=== PATIENT | female | born 1935 | race Two or more races ===

== ENCOUNTER 2017-01-29 16:47 | Inpatient (IN) | payer MEDICARE ==
--- NOTE | 2017-01-29 17:44 | ER Document Report ---
ED Medical Screen (RME) - General Chief Complaint: Fever Stated Complaint: WEAKNESS Time Seen by Provider: 01/29/17 17:36 Mode of Arrival: Wheelchair Information source: Patient, Relative, Dr. Office Notes: 81-year-old female presents from primary care office with complaints of fever, possible UTI and pneumonia. Pt notes generalized weakness. I have greeted and performed a rapid initial assessment of this patient. A comprehensive ED assessment and evaluation of the patient, analysis of test results and completion of the medical decision making process will be conducted by additional ED providers. PHYSICAL EXAMINATION: GENERAL: Well-appearing, well-nourished and in no acute distress. HEAD: Atraumatic, normocephalic. EYES: Pupils equal round extraocular movements intact, conjunctiva are normal. ENT: Nares patent NECK: Normal range of motion LUNGS:crackles in the RLL Musculoskeletal: Normal range of motion NEUROLOGICAL: Normal speech, normal gait. PSYCH: Normal mood, normal affect. SKIN: Warm, Dry, normal turgor, no rashes or lesions noted. TRAVEL OUTSIDE OF THE [place] IN LAST 30 DAYS: No - Related Data Allergies/Adverse Reactions: ciprofloxacin [From Cipro] Allergy (Verified 01/29/17 17:03) clindamycin [Clindamycin] Allergy (Verified 01/29/17 17:02) hives/rash teriparatide [From Forteo] Allergy (Verified 01/29/17 17:02) Shortness of Breath tramadol [Tramadol] Adverse Reaction (Verified 01/29/17 17:02) Dizziness hair dye Allergy (Uncoded 01/29/17 17:02) rash Past Medical History - Past Medical History Cardiac Medical History: Reports: Hx Congestive Heart Failure, Hx Hypercholesterolemia, Hx Hypertension Endocrine Medical History: Reports: Hx Diabetes Mellitus Type 2, Hx Hypothyroidism Renal/ Medical History: Denies: Hx Peritoneal Dialysis GI Medical History: Reports: Hx Gastroesophageal Reflux Disease, Hx Irritable Bowel Musculoskeltal Medical History: Reports Hx Arthritis - Rheumatoid arthritis Psychiatric Medical History: Reports: Hx Anxiety, Hx Dementia, Hx Depression - anxiety Past Surgical History: Reports: Hx Abdominal Surgery - Gastrostomy tube for dysphagia in the past, but has been removed. - Immunizations Hx Diphtheria, Pertussis, Tetanus Vaccination: Yes Physical Exam - Vital signs Vitals: Temp Pulse Resp BP Pulse Ox 97.8 F 89 20 123/60 97 01/29/17 17:04 01/29/17 17:04 01/29/17 17:04 01/29/17 17:04 01/29/17 17:04 Course - Vital Signs Vital signs: Temp Pulse Resp BP Pulse Ox 97.8 F 89 20 123/60 97 01/29/17 17:04 01/29/17 17:04 01/29/17 17:04 01/29/17 17:04 01/29/17 17:04
[2017-01-29 18:35] LABS: VENOUS BLOOD HCO3 16.5 mmol/L (20-32); VENOUS BLOOD PCO2 34.3 mmHg (35-63); VENOUS BLOOD PH 7.3 (7.30-7.42)
[2017-01-29 18:44] LABS: HEMATOCRIT 36.3 % (36.0-47.0); HEMOGLOBIN 11.5 g/dL (12.0-15.5); HGB HCT DIFFERENCE -1.8; MEAN CORPUSCULAR HEMOGLOBIN 30.1 pg (27.0-33.4); MEAN CORPUSCULAR HGB CONC 31.8 g/dL (32.0-36.0); MEAN CORPUSCULAR VOLUME 95 fl (80-97); RED BLOOD COUNT 3.84 10^6/uL (3.72-5.28); RED CELL DISTRIBUTION WIDTH 17.5 % (11.5-14.0); WHITE BLOOD COUNT 22.1 10^3/uL (4.0-10.5)
[2017-01-29 18:50] LABS: PROTHROMBIN TIME 14.6 SEC (11.4-15.4)
[2017-01-29 19:01] LABS: ALANINE AMINOTRANSFERASE 18 U/L (9-52); ALBUMIN 3.2 g/dL (3.5-5.0); ALKALINE PHOSPHATASE 42 U/L (38-126); ANION GAP 12 (5-19); ASPARTATE AMINO TRANSFERASE 15 U/L (14-36); BILIRUBIN,DIRECT 0.5 mg/dL (0.0-0.4); BILIRUBIN,TOTAL 0.6 mg/dL (0.2-1.3); BLOOD UREA NITROGEN 23 mg/dL (7-20); CALCIUM 9.5 mg/dL (8.4-10.2); CARBON DIOXIDE 18 mmol/L (22-30); CHLORIDE 110 mmol/L (98-107); CREATININE RESULT 0.79 mg/dL (0.52-1.25); GLUCOSE 109 mg/dL (75-110); SODIUM 139.5 mmol/L (137-145); TOTAL PROTEIN 6.3 g/dL (6.3-8.2)
[2017-01-29 19:02] LABS: BAND NEUTROPHILS % (MANUAL) 9 % (3-5); BASOPHILS % (MANUAL) 0 % (0-2); EOSINOPHILS % (MANUAL) 0 % (0-6); LYMPHOCYTES % (MANUAL) 11 % (13-45); TOTAL CELLS COUNTED 100
[2017-01-29 19:06] LABS: ANISOCYTOSIS 1+; BURR CELLS SLIGHT; OVALOCYTES SLIGHT; PLATELET CLUMPS PRESENT; SCHISTOCYTES SLIGHT; TOXIC GRANULATION 1+
--- NOTE | 2017-01-29 19:08 | RADIOLOGY REPORT (SQ) ---
EXAM DESCRIPTION: CHEST PA/LAT COMPLETED DATE/TIME: 01/29/2017 6:51 pm REASON FOR STUDY: fever COMPARISON: 12/03/2015. EXAM PARAMETERS: NUMBER OF VIEWS: two views TECHNIQUE: Digital Frontal and Lateral radiographic views of the chest acquired. RADIATION DOSE: NA LIMITATIONS: none FINDINGS: LUNGS AND PLEURA: Indistinct airspace disease in the right lung, particularly the right ba se. Left lung clear. No pleural effusion. No pneumothorax. MEDIASTINUM AND HILAR STRUCTURES: No masses or contour abnormalities. HEART AND VASCULAR STRUCTURES: Heart normal size. No evidence for failure. BONES: No acute findings. HARDWARE: None in the chest. OTHER: No other significant finding. IMPRESSION: INDISTINCT INFILTRATE IN THE RIGHT LUNG SUSPICIOUS FOR PNEUMONIA. TECHNICAL DOCUMENTATION: JOB ID: [id number] [employer]- All Rights Reserved
[2017-01-29] MEDS ORDERED: CEFTRIAXONE 1 GM/D5W RTU 50 ML IV ONE (19:10)
[2017-01-29] MEDS ORDERED: AZITHROMYCIN 250 MG TABLET PO ONE (19:11)
[2017-01-29] MEDS ORDERED: NORMAL SALINE 1000 ML 1,000 ML IV ONE ×2 (19:11→20:25)
[2017-01-29 19:51] LABS: APPEARANCE,URINE CLOUDY; BILIRUBIN,URINE NEGATIVE (NEGATIVE); GLUCOSE, URINE NEGATIVE (NEGATIVE); KETONES,URINE NEGATIVE (NEGATIVE); URINE SPECIFIC GRAVITY 1.023
[2017-01-29 19:52] LABS: BACTERIA,URINE 4+ /HPF; LEUKOCYTE ESTERASE,URINE LARGE (NEGATIVE); NITRITE,URINE NEGATIVE (NEGATIVE); PROTEIN,URINE 100 mg/dL (NEGATIVE); UROBILINOGEN,URINE NEGATIVE mg/dL (<2.0); WBC,URINE >100 /HPF
--- NOTE | 2017-01-29 20:25 | ER Document Report ---
ED General - General Chief Complaint: Fever Stated Complaint: WEAKNESS Time Seen by Provider: 01/29/17 17:36 Mode of Arrival: Wheelchair Cannot obtain history due to: Dementia Notes: Patient is an 81-year-old female past medical history of dementia, hypertension , who presents with fever 203.5F earlier this morning as recorded by EMS. Patient herself is extremely demented and unable to provide any meaningful history. The daughter at the bedside states that she has had a productive cough and fever for the past 12 hours. Patient was seen by her primary care physician referred to the emergency department for further assessment. The daughter did provide Tylenol today with improvement of the patient's fever. Patient has apparently had similar symptoms in the past with prior occult infections. History is otherwise limited secondary to patient's dementia. TRAVEL OUTSIDE OF THE [place] IN LAST 30 DAYS: No - Related Data Allergies/Adverse Reactions: ciprofloxacin [From Cipro] Allergy (Verified 01/29/17 17:03) clindamycin [Clindamycin] Allergy (Verified 01/29/17 17:02) hives/rash teriparatide [From Forteo] Allergy (Verified 01/29/17 17:02) Shortness of Breath tramadol [Tramadol] Adverse Reaction (Verified 01/29/17 17:02) Dizziness hair dye Allergy (Uncoded 01/29/17 17:02) rash Home Medications: Current Home Medications Atorvastatin Calcium [Lipitor 10 mg Tablet] 10 mg PO QHS 01/29/17 [History] Azathioprine 50 mg PO BID 01/29/17 [History] Ca Carbonate/Vitamin D3/Vit K [Calcium + D Soft Chewable Tab] 1 each PO BID 04/09 [History] Cyanocobalamin (Vitamin B-12) [Vitamin B-12 1000 Mcg Tablet] 2,000 mcg PO DAILY 01/29/17 [History] Dexlansoprazole [Dexilant 30 mg Capsule] 30 mg PO DAILY 01/29/17 [History] Diclofenac Sodium [Voltaren] 100 gm TP DAILY PRN 01/29/17 [History] Donepezil HCl [Aricept 5 mg Tablet] 5 mg PO QHS 01/29/17 [History] Ergocalciferol (Vitamin D2) [Vitamin D2] 50,000 unit PO ASDIR 01/29/17 [History] Hydroxychloroquine Sulfate [Plaquenil 200 mg Tablet] 200 mg PO DAILY 01/29/17 [ History] Olopatadine HCl [Patanol 0.1% Oph Soln 5 Ml Bottle] 1 drop BTH_EYE DAILY PRN 04/09 [History] Propafenone HCl 300 mg PO Q8H 01/29/17 [History] Sertraline HCl [Zoloft 50 mg Tablet] 50 mg PO DAILY 01/29/17 [History] Past Medical History - General Information source: Patient, Relative, DrLoly Office - Social History Smoking Status: Never Smoker Chew tobacco use (# tins/day): No Frequency of alcohol use: None Drug Abuse: None Lives with: Family Family History: Reviewed & Not Pertinent Patient has suicidal ideation: No Patient has homicidal ideation: No - Past Medical History Cardiac Medical History: Reports: Hx Congestive Heart Failure, Hx Hypercholesterolemia, Hx Hypertension Endocrine Medical History: Reports: Hx Diabetes Mellitus Type 2, Hx Hypothyroidism Renal/ Medical History: Denies: Hx Peritoneal Dialysis GI Medical History: Reports: Hx Gastroesophageal Reflux Disease, Hx Irritable Bowel Musculoskeltal Medical History: Reports Hx Arthritis - Rheumatoid arthritis Psychiatric Medical History: Reports: Hx Anxiety, Hx Dementia, Hx Depression - anxiety Past Surgical History: Reports: Hx Abdominal Surgery - Gastrostomy tube for dysphagia in the past, but has been removed. - Immunizations Hx Diphtheria, Pertussis, Tetanus Vaccination: Yes Hx Pneumococcal Vaccination: 06/24/13 Review of Systems - Review of Systems -: Yes ROS unobtainable due to patient's medical condition Physical Exam - Vital signs Vitals: Temp Pulse Resp BP Pulse Ox 97.8 F 89 20 123/60 97 01/29/17 17:04 01/29/17 17:04 01/29/17 17:04 01/29/17 17:04 01/29/17 17:04 Interpretation: Normal Notes: PHYSICAL EXAMINATION: GENERAL: Appears in no acute distress. Elderly in appearance. HEAD: Atraumatic, normocephalic. EYES: Pupils equal round and reactive to light, extraocular movements intact, sclera anicteric, conjunctiva are normal. ENT: nares patent, oropharynx clear without exudates. Moderately dry mucous membranes. NECK: Normal range of motion, supple without lymphadenopathy LUNGS: Slightly diminished breath sounds at the right base. No respiratory distress. HEART: Regular rate and rhythm without murmurs ABDOMEN: Soft, nontender, normoactive bowel sounds. No guarding, no rebound. No masses appreciated. EXTREMITIES: Normal range of motion, no pitting or edema. No cyanosis. NEUROLOGICAL: No focal neurological deficits. Moves all extremities spontaneously and on command. PSYCH: Advanced dementia. Oriented to person only SKIN: Warm, Dry, normal turgor, no rashes or lesions noted. Course - Re-evaluation Re-evalutation: 01/29/17 20:21 Patient presents with a fever to 103.5F by EMS record earlier today, increased fatigue, cough and change in her overall appearance of the family. Patient is moderately ill in appearance the time of assessment vitals are otherwise within normal limits. She is in no respiratory distress. Laboratories do demonstrate a leukocytosis with bandemia. Urinalysis consistent with an acute urinary tract infection. Her chest x-ray also demonstrates a right lower lobe pneumonia. She has been started on IV fluids, IV ceftriaxone and oral azithromycin. Given her multifocal infection, prominent leukocytosis and age she will require admission to the hospital. Her lactate is normal however and she does not meet severe sepsis criteria. - Vital Signs Vital signs: Temp Pulse Resp BP Pulse Ox 97.8 F 89 20 106/44 L 99 01/29/17 17:04 01/29/17 17:04 01/29/17 22:01 01/29/17 22:01 01/29/17 22:01 - Laboratory Result Diagrams: 01/29/17 18:15 01/29/17 18:15 Laboratory results interpreted by me: 01/29/17 01/29/17 01/29/17 18:15 18:15 18:15 WBC 22.1 H Hgb 11.5 L MCHC 31.8 L RDW 17.5 H Band Neutrophils % 9 H Lymphocytes % (Manual) 11 L Monocytes % (Manual) 2 L Abs Neuts (Manual) 19.2 H VBG pCO2 34.3 L VBG HCO3 16.5 L Chloride 110 H Carbon Dioxide 18 L BUN 23 H Direct Bilirubin 0.5 H Creatine Kinase Albumin 3.2 L Urine Protein Urine Blood Ur Leukocyte Esterase 01/29/17 01/29/17 18:15 19:25 WBC Hgb MCHC RDW Band Neutrophils % Lymphocytes % (Manual) Monocytes % (Manual) Abs Neuts (Manual) VBG pCO2 VBG HCO3 Chloride Carbon Dioxide BUN Direct Bilirubin Creatine Kinase 25 L Albumin Urine Protein 100 H Urine Blood SMALL H Ur Leukocyte Esterase LARGE H - Diagnostic Test Radiology reviewed: Image reviewed, Reports reviewed Radiology results interpreted by me: 01/29/17 20:22 Chest x-ray: Right lower lobe pneumonia Discharge - Discharge Clinical Impression: Sepsis Qualifiers: Sepsis type: sepsis due to unspecified organism Qualified Code(s): A41.9 - Sepsis, unspecified organism Right lower lobe pneumonia Qualifiers: Pneumonia type: due to unspecified organism Qualified Code(s): J18.1 - Lobar pneumonia, unspecified organism Urinary tract infection Qualifiers: Urinary tract infection type: acute pyelonephritis Qualified Code(s): N10 - Acute pyelonephritis Disposition: ADMITTED INPATIENT Admitting Provider: [facility] Admitted: Telemetry
[2017-01-29] MEDS ORDERED: ONDANSETRON HCL INJ/PF 4 MG/2 ML SDV IV PRN (20:53)
[2017-01-29] MEDS ORDERED: MAG HYDROX/AL HYDROX/SIMETH SUSP 30 ML UDCUP PO PRN (20:53)
[2017-01-29] MEDS ORDERED: (PENDING PHARMACY ID) (Diclofenac Sodium [Voltaren] 100 GM) TP PRN (20:55)
[2017-01-29] MEDS ORDERED: OLOPATADINE HCL 0.1% OPH SOLN 5 ML OU PRN (20:55)
[2017-01-29] MEDS ORDERED: PROPAFENONE HCL 300 MG PO SCH (21:00)
[2017-01-29 21:32] LABS: CREATINE KINASE MB 1.14 ng/mL (<4.55); TROPONIN I 0.029 ng/mL
[2017-01-29] MEDS ORDERED: DONEPEZIL HCL 5 MG TABLET PO SCH (22:00)
[2017-01-29] MEDS ORDERED: DEXTROSE 40% GEL 15 GM TUBE PO PRN ×2 (23:10)
[2017-01-29] MEDS ORDERED: GLUCAGON,HUMAN RECOMB 1 MG INJ IM PRN (23:10)
[2017-01-29] MEDS ORDERED: DEXTROSE 50%-WATER 25 GM/50 ML DISP.SYRIN IV PRN ×2 (23:10)
[2017-01-29] MEDS ORDERED: INSULIN LISPRO 100 UNIT/ML 3 ML VIAL SUBCUT PRN (23:10)
[2017-01-29] MEDS ORDERED: BIMATOPROST 0.01% OPH SOLN 2.5 ML/BOTTLE ONE (23:40)
[2017-01-29] MEDS ORDERED: PROPAFENONE HCL 150 MG TABLET ONE (23:41)
[2017-01-29] MEDS: ALPRAZOLAM 0.5 MG TABLET PO PRN (23:56)
[2017-01-29] MEDS: PROPAFENONE HCL 150 MG TABLET PO SCH (23:56)
[2017-01-29] MEDS: BIMATOPROST 0.01% OPH SOLN 2.5 ML/BOTTLE OU SCH (23:57)
[2017-01-29] MEDS: ATORVASTATIN CALCIUM 10 MG TABLET PO SCH (23:57)
[2017-01-29] MEDS: HEPARIN SOD (PORCINE) 5,000 UNIT/ML 1 ML SYRINGE SUBCUT SCH (23:58)
--- NOTE | 2017-01-30 00:42 | PDOC H&P ---
History of Present Illness Admission Date/PCP: 01/29/17 20:53 NEYMAR THURSTON MD Patient complains of: Fever and weakness History of Present Illness: JOHANNA NOVAK is a 81 year old female past medical history of CVA, dementia, congestive heart failure, hypertension, rheumatoid arthritis and hypothyroidism. She has been her usual state of health until 12 hours prior to presentation with complaints of weakness and fever of 103.5. She was seen by primary care found to have hypotension tachycardia and fever and was referred to the emergency room for evaluation finding a chest x-ray suggestive of right- sided pneumonia and a urinalysis with pyuria. She started on empiric antibiotics and referred to the hospitalist for admission. Patient currently states she feels better denies chest pain nausea vomiting or diarrhea. She denies infectious contacts sore throat, rhinorrhea or cough. No dysuria or frequent urination or flank pain. Past Medical History Cardiac Medical History: Reports: Congestive Heart Failure, Hyperlipidema, Hypertension Endocrine Medical History: Reports: Diabetes Mellitus Type 2, Hypothyroidism GI Medical History: Reports: Gastroesophageal Reflux Disease Musculoskeltal Medical History: Reports: Arthritis - Rheumatoid arthritis Psychiatric Medical History: Reports: Dementia, Depression - anxiety Social History Information Source: Patient, Relative, Emergency Med Personnel, [facility] Records Lives with: Family Smoking Status: Never Smoker Frequency of Alcohol Use: None Hx Recreational Drug Use: No Hx Prescription Drug Abuse: No - Advance Directive Resuscitation Status: Full Code Family History Family History: DM, Hypertension Parental Family History Reviewed: Yes Children Family History Reviewed: Yes Sibling(s) Family History Reviewed.: Yes Medication/Allergy Home Medications: Alprazolam [Xanax 0.5 mg Tablet] 0.5 mg PO TID PRN 09/03/14 Fenofibrate 160 mg PO DAILY 09/03/14 Ferrous Sulfate [Feosol] 325 mg PO DAILY 09/03/14 Folic Acid 1 mg PO DAILY 09/03/14 Levothyroxine Sodium [Synthroid] 200 mcg PO DAILY 09/03/14 Metformin HCl [Glucophage] 500 mg PO DAILY 09/03/14 Bimatoprost [Lumigan 0.01% Oph Soln 2.5 ml/Bottle] 1 drop OP QHS 09/05/14 Ibuprofen 800 mg PO Q8H PRN 09/05/14 Levothyroxine Sodium [Synthroid 0.025 mg Tablet] 50 mcg PO DAILY 09/05/14 Prednisone [Deltasone 10 mg Tablet] 10 mg PO ASDIR PRN #15 tablet 09/24/14 Atorvastatin Calcium [Lipitor 10 mg Tablet] 10 mg PO QHS 01/29/17 Azathioprine 50 mg PO BID 01/29/17 Ca Carbonate/Vitamin D3/Vit K [Calcium + D Soft Chewable Tab] 1 each PO BID 04/09 Cyanocobalamin (Vitamin B-12) [Vitamin B-12 1000 Mcg Tablet] 2,000 mcg PO DAILY 01/29/17 Dexlansoprazole [Dexilant 30 mg Capsule] 30 mg PO DAILY 01/29/17 Diclofenac Sodium [Voltaren] 100 gm TP DAILY PRN 01/29/17 Donepezil HCl [Aricept 5 mg Tablet] 5 mg PO QHS 01/29/17 Ergocalciferol (Vitamin D2) [Vitamin D2] 50,000 unit PO ASDIR 01/29/17 Hydroxychloroquine Sulfate [Plaquenil 200 mg Tablet] 200 mg PO DAILY 01/29/17 Olopatadine HCl [Patanol 0.1% Oph Soln 5 Ml Bottle] 1 drop BTH_EYE DAILY PRN 04/09 Propafenone HCl 300 mg PO Q8H 01/29/17 Sertraline HCl [Zoloft 50 mg Tablet] 50 mg PO DAILY 01/29/17 Allergies/Adverse Reactions: ciprofloxacin [From Cipro] Allergy (Verified 01/29/17 17:03) clindamycin [Clindamycin] Allergy (Verified 01/29/17 17:02) hives/rash teriparatide [From Forteo] Allergy (Verified 01/29/17 17:02) Shortness of Breath tramadol [Tramadol] Adverse Reaction (Verified 01/29/17 17:02) Dizziness hair dye Allergy (Uncoded 01/29/17 17:02) rash Review of Systems Constitutional: ABSENT: chills, fever(s), headache(s), weight gain, weight loss Eyes: ABSENT: visual disturbances Ears: ABSENT: hearing changes Cardiovascular: ABSENT: chest pain, dyspnea on exertion, edema, orthropnea, palpitations Respiratory: ABSENT: cough, hemoptysis Gastrointestinal: ABSENT: abdominal pain, constipation, diarrhea, hematemesis, hematochezia, nausea, vomiting Genitourinary: ABSENT: dysuria, hematuria Musculoskeletal: ABSENT: joint swelling Integumentary: ABSENT: rash, wounds Neurological: ABSENT: abnormal gait, abnormal speech, confusion, dizziness, focal weakness, syncope Psychiatric: ABSENT: anxiety, depression, homidical ideation, suicidal ideation Endocrine: ABSENT: cold intolerance, heat intolerance, polydipsia, polyuria Hematologic/Lymphatic: ABSENT: easy bleeding, easy bruising Physical Exam Vital Signs: Temp Pulse Resp BP Pulse Ox 97.8 F 89 20 106/44 L 99 01/29/17 17:04 01/29/17 17:04 01/29/17 22:01 01/29/17 22:01 01/29/17 22:01 General appearance: PRESENT: no acute distress, well-developed, well-nourished Head exam: PRESENT: atraumatic, normocephalic Eye exam: PRESENT: conjunctiva pink, EOMI, PERRLA. ABSENT: scleral icterus Ear exam: PRESENT: normal external ear exam Mouth exam: PRESENT: moist, tongue midline Neck exam: ABSENT: carotid bruit, JVD, lymphadenopathy, thyromegaly Respiratory exam: PRESENT: crackles, decreased breath sounds - Right-sided crackles and decreased breath sounds. ABSENT: accessory muscle use, rales, rhonchi, stridor, tachypnea, unlabored, wheezes Cardiovascular exam: PRESENT: RRR. ABSENT: diastolic murmur, rubs, systolic murmur Pulses: PRESENT: normal dorsalis pedis pul Vascular exam: PRESENT: normal capillary refill GI/Abdominal exam: PRESENT: normal bowel sounds, soft. ABSENT: distended, guarding, mass, organolmegaly, rebound, tenderness Rectal exam: PRESENT: deferred Extremities exam: PRESENT: full ROM. ABSENT: calf tenderness, clubbing, pedal edema Neurological exam: PRESENT: alert, awake, oriented to person, oriented to place , oriented to time, oriented to situation, CN II-XII grossly intact, other - Facial asymmetry consistent with remote history. ABSENT: motor sensory deficit Psychiatric exam: PRESENT: appropriate affect, normal mood. ABSENT: homicidal ideation, suicidal ideation Skin exam: PRESENT: dry, intact, warm. ABSENT: cyanosis, rash Results Impressions: Chest X-Ray 01/29/17 17:36 IMPRESSION: INDISTINCT INFILTRATE IN THE RIGHT LUNG SUSPICIOUS FOR PNEUMONIA. Assessment & Plan - Diagnosis (1) Right lower lobe pneumonia Qualifiers: Pneumonia type: due to unspecified organism Qualified Code(s): J18.1 - Lobar pneumonia, unspecified organism Is this a current diagnosis for this admission?: YesPlan: History not entirely consistent with pneumonia and history of rheumatic lung disease, empiric treatment initiated consider follow-up imaging of associated pleural calcification with effusion. Incentive spirometry albuterol and Atrovent ordered CBC blood and sputum culture pending (2) Sepsis Qualifiers: Sepsis type: sepsis due to unspecified organism Qualified Code(s): A41.9 - Sepsis, unspecified organism Is this a current diagnosis for this admission?: YesPlan: Secondary to urinary tract infection, IV fluid challenge consider Solu-Cortef given history of rheumatic lung and prednisone use (3) Urinary tract infection Qualifiers: Urinary tract infection type: acute pyelonephritis Qualified Code(s): N10 - Acute pyelonephritis Is this a current diagnosis for this admission?: YesPlan: Empiric antibiotics initiated urine culture and CBC pending
[2017-01-30 03:41] LABS: ABSOLUTE BASOPHILS # (AUTO) 0.1 10^3/uL (0.0-0.2); ABSOLUTE EOSINOPHILS # (AUTO) 0.1 10^3/uL (0.0-0.6); ABSOLUTE LYMPHOCYTES (AUTO) 2.8 10^3/uL (0.5-4.7); ABSOLUTE MONOCYTES (AUTO) 0.6 10^3/uL (0.1-1.4); ABSOLUTE NEUT (AUTO) 12.9 10^3/uL (1.7-8.2); BASOPHILS % (AUTO) 0.7 % (0-2); EOSINOPHILS % (AUTO) 0.5 % (0-6); HEMATOCRIT 30.3 % (36.0-47.0); HEMOGLOBIN 9.6 g/dL (12.0-15.5); HGB HCT DIFFERENCE -1.5; LYMPHOCYTES % (AUTO) 16.7 % (13-45); MEAN CORPUSCULAR HGB CONC 31.5 g/dL (32.0-36.0); MEAN CORPUSCULAR VOLUME 95 fl (80-97); MONOCYTES % (AUTO) 3.7 % (3-13); RED BLOOD COUNT 3.18 10^6/uL (3.72-5.28); RED CELL DISTRIBUTION WIDTH 17.3 % (11.5-14.0); SEGMENTED NEUTROPHILS % (AUTO) 78.4 % (42-78); WHITE BLOOD COUNT 16.5 10^3/uL (4.0-10.5)
[2017-01-30 03:52] LABS: ANION GAP 8 (5-19); BLOOD UREA NITROGEN 19 mg/dL (7-20); CALCIUM 8.5 mg/dL (8.4-10.2); CARBON DIOXIDE 18 mmol/L (22-30); CHLORIDE 115 mmol/L (98-107); CREATININE RESULT 0.75 mg/dL (0.52-1.25); GLUCOSE 68 mg/dL (75-110); POTASSIUM 3.5 mmol/L (3.6-5.0); SODIUM 141.2 mmol/L (137-145)
[2017-01-30 04:02] LABS: CREATINE KINASE MB 1.55 ng/mL (<4.55)
[2017-01-30 04:04] LABS: TROPONIN I 0.055 ng/mL
[2017-01-30] MEDS: HEPARIN SOD (PORCINE) 5,000 UNIT/ML 1 ML SYRINGE SUBCUT SCH ×3 (06:59→21:23)
[2017-01-30] MEDS: PROPAFENONE HCL 150 MG TABLET PO SCH ×3 (07:08→21:23)
[2017-01-30] MEDS: IPRATROPIUM/ALBUTEROL 0.5-2.5 MG/3 ML AMPUL NEB SCH ×3 (07:57→20:39)
[2017-01-30] MEDS: NORMAL SALINE 1000 ML 1,000 ML IV SCH ×2 (07:59→14:56)
[2017-01-30] MEDS: CALCIUM CARBONATE 250 MG/VITAMIN D3 125 UNIT TABLET PO SCH ×2 (09:35→17:10)
[2017-01-30] MEDS: LANSOPRAZOLE 15 MG TAB.RAP.DR PO SCH (09:36)
[2017-01-30] MEDS: AZITHROMYCIN 500 MG in DEXTROSE 5%-WATER 250 ML IV SCH (09:38)
[2017-01-30] MEDS: DOCUSATE SODIUM 100 MG CAPSULE PO SCH ×2 (09:38→17:08)
[2017-01-30] MEDS ORDERED: (PENDING PHARMACY ID) (Dexlansoprazole [Dexilant 30 Mg Capsule] 30 MG) PO SCH (10:00)
[2017-01-30] MEDS ORDERED: CA CARBONATE PO SCH (10:00)
[2017-01-30] MEDS ORDERED: LEVOTHYROXINE SODIUM 0.1 MG TABLET PO SCH (10:00)
[2017-01-30] MEDS ORDERED: [UNRECOGNIZED DRUG - OTHER] PO SCH (10:00)
[2017-01-30] MEDS ORDERED: VITAMIN D3 PO SCH (10:00)
[2017-01-30] MEDS ORDERED: EAC PO SCH (10:00)
[2017-01-30] MEDS ORDERED: VIT K PO SCH (10:00)
[2017-01-30 10:08] LABS: CREATINE KINASE MB 1.51 ng/mL (<4.55); TROPONIN I 0.039 ng/mL
--- NOTE | 2017-01-30 10:59 | EKG REPORT ---
SEVERITY:- ABNORMAL ECG - ATRIAL FIBRILLATION LEFT BUNDLE BRANCH BLOCK : Confirmed by: Virginia Pa MD 30-Jan-2017 10:57:51
[2017-01-30] MEDS: ACETAMINOPHEN 325 MG TABLET PO PRN (12:40)
[2017-01-30] MEDS ORDERED: LOPERAMIDE HCL 2 MG CAPSULE PO PRN (13:04)
[2017-01-30] MEDS ORDERED: LOPERAMIDE HCL 2 MG CAPSULE PO ONE ×2 (13:30→14:00)
--- NOTE | 2017-01-30 13:34 | PDOC PROGRESS REPORT ---
Subjective Progress Note for:: 01/30/17 Subjective:: Complains of a nonproductive cough and lower back pain. Physical Exam Vital Signs: Temp Pulse Resp BP Pulse Ox 98.2 F 87 16 111/39 L 99 01/30/17 11:22 01/30/17 11:22 01/30/17 11:22 01/30/17 11:22 01/30/17 11:22 Intake & Output 01/29/17 01/30/17 01/31/17 06:59 06:59 06:59 Intake Total 220 Output Total 200 Balance 20 Weight 53 kg General appearance: PRESENT: mild distress Eye exam: PRESENT: conjunctiva pink. ABSENT: scleral icterus Mouth exam: PRESENT: moist, tongue midline Neck exam: ABSENT: JVD Respiratory exam: PRESENT: clear to auscultation ana maria. ABSENT: rales, rhonchi, wheezes Cardiovascular exam: PRESENT: RRR. ABSENT: diastolic murmur, rubs, systolic murmur GI/Abdominal exam: PRESENT: normal bowel sounds, soft. ABSENT: distended, guarding, mass, organolmegaly, rebound, tenderness Extremities exam: ABSENT: calf tenderness, clubbing, pedal edema Neurological exam: PRESENT: alert, awake, oriented to person, oriented to place , oriented to time, oriented to situation, CN II-XII grossly intact. ABSENT: motor sensory deficit Psychiatric exam: PRESENT: appropriate affect Skin exam: PRESENT: dry, intact, warm. ABSENT: cyanosis, rash Results Laboratory Results: 01/30/17 03:07 01/30/17 03:07 01/30/17 01/30/17 03:07 03:07 WBC 16.5 H RBC 3.18 L Hgb 9.6 L Hct 30.3 L MCV 95 MCH 30.0 MCHC 31.5 L RDW 17.3 H Plt Count 317 Seg Neutrophils % 78.4 H Lymphocytes % 16.7 Monocytes % 3.7 Eosinophils % 0.5 Basophils % 0.7 Absolute Neutrophils 12.9 H Absolute Lymphocytes 2.8 Absolute Monocytes 0.6 Absolute Eosinophils 0.1 Absolute Basophils 0.1 Sodium 141.2 Potassium 3.5 L Chloride 115 H Carbon Dioxide 18 L Anion Gap 8 BUN 19 Creatinine 0.75 Est GFR ( Amer) > 60 Est GFR (Non-Af Amer) > 60 Glucose 68 L Calcium 8.5 01/30/17 01/30/17 01/30/17 03:07 03:07 09:00 Creatine Kinase 47 41 CK-MB (CK-2) 1.55 Troponin I 0.055 01/30/17 09:00 Creatine Kinase CK-MB (CK-2) 1.51 Troponin I 0.039 Impressions: Chest X-Ray 01/29/17 17:36 IMPRESSION: INDISTINCT INFILTRATE IN THE RIGHT LUNG SUSPICIOUS FOR PNEUMONIA. Assessment & Plan - Diagnosis (1) Sepsis Qualifiers: Sepsis type: sepsis due to unspecified organism Qualified Code(s): A41.9 - Sepsis, unspecified organism Is this a current diagnosis for this admission?: YesPlan: The urinary tract infection as well as a probable pneumonia for the cause for sepsis. Patient's blood pressure has improved with IV fluids (2) Urinary tract infection Qualifiers: Urinary tract infection type: acute pyelonephritis Qualified Code(s): N10 - Acute pyelonephritis Is this a current diagnosis for this admission?: YesPlan: Has been started on Rocephin for her urinary tract infection. We will continue with IV fluids. (3) Right lower lobe pneumonia Qualifiers: Pneumonia type: due to unspecified organism Qualified Code(s): J18.1 - Lobar pneumonia, unspecified organism Is this a current diagnosis for this admission?: YesPlan: Is on Rocephin and Zithromax. (5) Congestive heart failure Is this a current diagnosis for this admission?: YesPlan: Has a history of congestive heart failure however she is volume depleted currently. She is receiving IV fluids and will watch closely to make certain that she does not become volume overloaded (6) Rheumatoid arthritis Is this a current diagnosis for this admission?: Yes (7) Hypothyroidism Is this a current diagnosis for this admission?: YesPlan: Continue with Synthroid. (8) Hypertension Is this a current diagnosis for this admission?: YesPlan: Hold her antihypertensives in light of her sepsis and hypotension - Time Time Spent with patient: 25-34 minutes - Inpatient Certification Medical Necessity: Need For IV Fluids, Need for IV Antibiotics
[2017-01-30] MEDS: IBUPROFEN 800 MG TABLET PO SCH (17:09)
[2017-01-30] MEDS: PREDNISONE 5 MG TABLET PO SCH (17:09)
[2017-01-30] MEDS: CEFTRIAXONE 1 GM/D5W RTU 1 GM/50 ML RTUPB IV SCH (17:10)
[2017-01-30] MEDS: ALPRAZOLAM 0.5 MG TABLET PO PRN (20:04)
[2017-01-30] MEDS: IPRATROPIUM/ALBUTEROL 0.5-2.5 MG/3 ML AMPUL NEB PRN (20:31)
[2017-01-30] MEDS: HYDROXYCHLOROQUINE SULFATE 200 MG TABLET PO SCH (21:22)
[2017-01-30] MEDS: FENOFIBRATE NANOCRYSTALLIZED 145 MG TABLET PO SCH (21:23)
[2017-01-30] MEDS: ATORVASTATIN CALCIUM 10 MG TABLET PO SCH (21:23)
[2017-01-30] MEDS: BIMATOPROST 0.01% OPH SOLN 2.5 ML/BOTTLE OU SCH (21:23)
[2017-01-30] MEDS ORDERED: (PENDING PHARMACY ID) (Fenofibrate [Fenofibrate] 160 MG) PO SCH (22:00)
[2017-01-31 05:14] LABS: ABSOLUTE EOSINOPHILS # (AUTO) 0.1 10^3/uL (0.0-0.6); ABSOLUTE MONOCYTES (AUTO) 0.5 10^3/uL (0.1-1.4); ABSOLUTE NEUT (AUTO) 8.6 10^3/uL (1.7-8.2); BASOPHILS % (AUTO) 0.4 % (0-2); EOSINOPHILS % (AUTO) 0.7 % (0-6); HEMATOCRIT 26.8 % (36.0-47.0); HEMOGLOBIN 8.7 g/dL (12.0-15.5); HGB HCT DIFFERENCE -0.7; LYMPHOCYTES % (AUTO) 10.2 % (13-45); MEAN CORPUSCULAR HGB CONC 32.6 g/dL (32.0-36.0); MEAN CORPUSCULAR VOLUME 95 fl (80-97); MONOCYTES % (AUTO) 4.7 % (3-13); RED BLOOD COUNT 2.81 10^6/uL (3.72-5.28); RED CELL DISTRIBUTION WIDTH 17.8 % (11.5-14.0); WHITE BLOOD COUNT 10.2 10^3/uL (4.0-10.5)
[2017-01-31] MEDS: PROPAFENONE HCL 150 MG TABLET PO SCH ×3 (05:25→22:18)
[2017-01-31] MEDS: HEPARIN SOD (PORCINE) 5,000 UNIT/ML 1 ML SYRINGE SUBCUT SCH ×3 (05:25→22:17)
[2017-01-31 05:30] LABS: ANION GAP 8 (5-19); BLOOD UREA NITROGEN 13 mg/dL (7-20); CALCIUM 7.6 mg/dL (8.4-10.2); CARBON DIOXIDE 17 mmol/L (22-30); CHLORIDE 119 mmol/L (98-107); CREATININE RESULT 0.63 mg/dL (0.52-1.25); GLUCOSE 135 mg/dL (75-110); POTASSIUM 3.4 mmol/L (3.6-5.0); SODIUM 143.7 mmol/L (137-145)
[2017-01-31] MEDS: IPRATROPIUM/ALBUTEROL 0.5-2.5 MG/3 ML AMPUL NEB PRN (06:29)
--- NOTE | 2017-01-31 08:46 | PDOC PROGRESS REPORT ---
Subjective Progress Note for:: 01/31/17 Subjective:: Denies any complaints Physical Exam Vital Signs: Temp Pulse Resp BP Pulse Ox 98.0 F 79 18 135/64 H 97 01/31/17 08:07 01/31/17 08:07 01/31/17 08:07 01/31/17 08:07 01/31/17 08:07 Intake & Output 01/30/17 01/31/17 02/01/17 06:59 06:59 06:59 Intake Total 220 3690 Output Total 200 750 Balance 20 2940 Weight 53 kg 72.4 kg 72.4 kg General appearance: PRESENT: no acute distress Eye exam: PRESENT: conjunctiva pink. ABSENT: scleral icterus Ear exam: PRESENT: normal external ear exam Mouth exam: PRESENT: moist, tongue midline Neck exam: ABSENT: JVD Respiratory exam: PRESENT: clear to auscultation ana maria. ABSENT: rales, rhonchi, wheezes Cardiovascular exam: PRESENT: RRR. ABSENT: diastolic murmur, rubs, systolic murmur GI/Abdominal exam: PRESENT: normal bowel sounds, soft. ABSENT: distended, guarding, mass, organolmegaly, rebound, tenderness Extremities exam: ABSENT: calf tenderness, clubbing, pedal edema Neurological exam: PRESENT: alert, awake, oriented to person, oriented to place , oriented to time, oriented to situation, CN II-XII grossly intact. ABSENT: motor sensory deficit Psychiatric exam: PRESENT: appropriate affect Skin exam: PRESENT: dry, intact, warm. ABSENT: cyanosis, rash Results Laboratory Results: 01/31/17 04:19 01/31/17 04:19 01/31/17 01/31/17 04:19 04:19 WBC 10.2 RBC 2.81 L Hgb 8.7 L Hct 26.8 L MCV 95 MCH 31.0 MCHC 32.6 RDW 17.8 H Plt Count 277 Seg Neutrophils % 84.0 H Lymphocytes % 10.2 L Monocytes % 4.7 Eosinophils % 0.7 Basophils % 0.4 Absolute Neutrophils 8.6 H Absolute Lymphocytes 1.0 Absolute Monocytes 0.5 Absolute Eosinophils 0.1 Absolute Basophils 0.0 Sodium 143.7 Potassium 3.4 L Chloride 119 H Carbon Dioxide 17 L Anion Gap 8 BUN 13 Creatinine 0.63 Est GFR ( Amer) > 60 Est GFR (Non-Af Amer) > 60 Glucose 135 H Calcium 7.6 L 01/30/17 01/30/17 01/30/17 03:07 03:07 09:00 Creatine Kinase 47 41 CK-MB (CK-2) 1.55 Troponin I 0.055 01/30/17 09:00 Creatine Kinase CK-MB (CK-2) 1.51 Troponin I 0.039 Impressions: Chest X-Ray 01/29/17 17:36 IMPRESSION: INDISTINCT INFILTRATE IN THE RIGHT LUNG SUSPICIOUS FOR PNEUMONIA. Assessment & Plan - Diagnosis (1) Sepsis Qualifiers: Sepsis type: sepsis due to unspecified organism Qualified Code(s): A41.9 - Sepsis, unspecified organism Is this a current diagnosis for this admission?: YesPlan: The urinary tract infection as well as a probable pneumonia for the cause for sepsis. Patient's blood pressure has improved with IV fluids (2) Urinary tract infection Qualifiers: Urinary tract infection type: acute pyelonephritis Qualified Code(s): N10 - Acute pyelonephritis Is this a current diagnosis for this admission?: YesPlan: Has been started on Rocephin for her urinary tract infection. Growing gram- negative rods from her urine culture. We will continue with IV fluids. (3) Right lower lobe pneumonia Qualifiers: Pneumonia type: due to unspecified organism Qualified Code(s): J18.1 - Lobar pneumonia, unspecified organism Is this a current diagnosis for this admission?: YesPlan: Is on Rocephin and Zithromax. (4) Dementia Is this a current diagnosis for this admission?: Yes (5) Congestive heart failure Is this a current diagnosis for this admission?: YesPlan: Has a history of congestive heart failure however she is volume depleted currently. She is receiving IV fluids and will watch closely to make certain that she does not become volume overloaded (6) Rheumatoid arthritis Is this a current diagnosis for this admission?: Yes (7) Hypothyroidism Is this a current diagnosis for this admission?: YesPlan: Continue with Synthroid. (8) Hypertension Is this a current diagnosis for this admission?: YesPlan: Hold her antihypertensives in light of her sepsis and hypotension - Time Time Spent with patient: 25-34 minutes - Inpatient Certification Medical Necessity: Need For IV Fluids, Need for IV Antibiotics
[2017-01-31] MEDS: IPRATROPIUM/ALBUTEROL 0.5-2.5 MG/3 ML AMPUL NEB SCH ×3 (08:48→19:40)
[2017-01-31] MEDS: CYANOCOBALAMIN (VITAMIN B-12) 1,000 MCG TABLET PO SCH (09:11)
[2017-01-31] MEDS: CALCIUM CARBONATE 250 MG/VITAMIN D3 125 UNIT TABLET PO SCH ×2 (09:11→18:09)
[2017-01-31] MEDS: LANSOPRAZOLE 15 MG TAB.RAP.DR PO SCH (09:12)
[2017-01-31] MEDS: FOLIC ACID 1 MG TABLET PO SCH (09:12)
[2017-01-31] MEDS: IBUPROFEN 800 MG TABLET PO SCH ×3 (09:12→18:09)
[2017-01-31] MEDS: SERTRALINE HCL 50 MG TABLET PO SCH (09:12)
[2017-01-31] MEDS: DOCUSATE SODIUM 100 MG CAPSULE PO SCH ×2 (09:12→18:09)
[2017-01-31] MEDS: FERROUS SULFATE 325 MG TABLET PO SCH (09:13)
[2017-01-31] MEDS: LEVOTHYROXINE SODIUM 0.1 MG TABLET PO SCH (09:13)
[2017-01-31] MEDS: PREDNISONE 5 MG TABLET PO SCH ×2 (09:13→18:10)
[2017-01-31] MEDS: LEVOTHYROXINE SODIUM 0.05 MG TABLET PO SCH (09:15)
[2017-01-31] MEDS: AZITHROMYCIN 500 MG in DEXTROSE 5%-WATER 250 ML IV SCH (09:16)
[2017-01-31] MEDS ORDERED: LEVOTHYROXINE SODIUM 0.025 MG TABLET PO SCH (10:00)
[2017-01-31] MEDS: CEFTRIAXONE 1 GM/D5W RTU 1 GM/50 ML RTUPB IV SCH (18:10)
[2017-01-31] MEDS: FENOFIBRATE NANOCRYSTALLIZED 145 MG TABLET PO SCH (22:17)
[2017-01-31] MEDS: ATORVASTATIN CALCIUM 10 MG TABLET PO SCH (22:17)
[2017-01-31] MEDS: BIMATOPROST 0.01% OPH SOLN 2.5 ML/BOTTLE OU SCH (22:17)
[2017-01-31] MEDS: ALPRAZOLAM 0.5 MG TABLET PO PRN (22:18)
[2017-02-01] MEDS: ACETAMINOPHEN 325 MG TABLET PO PRN (04:14)
[2017-02-01] MEDS: IPRATROPIUM/ALBUTEROL 0.5-2.5 MG/3 ML AMPUL NEB PRN (04:34)
[2017-02-01 05:18] LABS: ABSOLUTE BASOPHILS # (AUTO) 0.1 10^3/uL (0.0-0.2); ABSOLUTE EOSINOPHILS # (AUTO) 0.1 10^3/uL (0.0-0.6); ABSOLUTE LYMPHOCYTES (AUTO) 1.7 10^3/uL (0.5-4.7); ABSOLUTE MONOCYTES (AUTO) 0.6 10^3/uL (0.1-1.4); ABSOLUTE NEUT (AUTO) 10.8 10^3/uL (1.7-8.2); BASOPHILS % (AUTO) 0.4 % (0-2); EOSINOPHILS % (AUTO) 0.8 % (0-6); HEMATOCRIT 27.9 % (36.0-47.0); HEMOGLOBIN 8.8 g/dL (12.0-15.5); HGB HCT DIFFERENCE -1.5; LYMPHOCYTES % (AUTO) 12.9 % (13-45); MEAN CORPUSCULAR HEMOGLOBIN 30.1 pg (27.0-33.4); MEAN CORPUSCULAR HGB CONC 31.5 g/dL (32.0-36.0); MEAN CORPUSCULAR VOLUME 95 fl (80-97); MONOCYTES % (AUTO) 4.3 % (3-13); RED BLOOD COUNT 2.93 10^6/uL (3.72-5.28); RED CELL DISTRIBUTION WIDTH 17.2 % (11.5-14.0); SEGMENTED NEUTROPHILS % (AUTO) 81.6 % (42-78); WHITE BLOOD COUNT 13.2 10^3/uL (4.0-10.5)
[2017-02-01 05:41] LABS: ANION GAP 12 (5-19); BLOOD UREA NITROGEN 13 mg/dL (7-20); CALCIUM 7.3 mg/dL (8.4-10.2); CARBON DIOXIDE 16 mmol/L (22-30); CHLORIDE 118 mmol/L (98-107); CREATININE RESULT 0.62 mg/dL (0.52-1.25); GLUCOSE 121 mg/dL (75-110); SODIUM 145.9 mmol/L (137-145)
[2017-02-01] MEDS: PROPAFENONE HCL 150 MG TABLET PO SCH ×3 (06:38→21:40)
[2017-02-01] MEDS: HEPARIN SOD (PORCINE) 5,000 UNIT/ML 1 ML SYRINGE SUBCUT SCH ×3 (06:38→21:39)
[2017-02-01] MEDS: IPRATROPIUM/ALBUTEROL 0.5-2.5 MG/3 ML AMPUL NEB SCH ×3 (08:44→20:22)
--- NOTE | 2017-02-01 08:55 | PDOC PROGRESS REPORT ---
Subjective Progress Note for:: 02/01/17 Subjective:: Complains of back and joint pain Physical Exam Vital Signs: Temp Pulse Resp BP Pulse Ox 98.1 F 82 16 95/64 L 97 02/01/17 04:00 02/01/17 08:47 02/01/17 08:47 02/01/17 04:00 02/01/17 08:47 Intake & Output 01/31/17 02/01/17 02/02/17 06:59 06:59 06:59 Intake Total 3690 690 Output Total 750 1850 Balance 2940 -1160 Weight 72.4 kg 72.4 kg General appearance: PRESENT: no acute distress Eye exam: PRESENT: conjunctiva pink. ABSENT: scleral icterus Ear exam: PRESENT: normal external ear exam Mouth exam: PRESENT: moist, tongue midline Neck exam: ABSENT: JVD Respiratory exam: PRESENT: clear to auscultation ana maria. ABSENT: rales, rhonchi, wheezes Cardiovascular exam: PRESENT: RRR. ABSENT: diastolic murmur, rubs, systolic murmur GI/Abdominal exam: PRESENT: normal bowel sounds, soft. ABSENT: distended, guarding, mass, organolmegaly, rebound, tenderness Extremities exam: ABSENT: calf tenderness, clubbing, pedal edema Neurological exam: PRESENT: alert, awake, oriented to person, oriented to place , oriented to time, oriented to situation, CN II-XII grossly intact. ABSENT: motor sensory deficit Psychiatric exam: PRESENT: appropriate affect Results Laboratory Results: 02/01/17 04:59 02/01/17 04:59 02/01/17 02/01/17 04:59 04:59 WBC 13.2 H RBC 2.93 L Hgb 8.8 L Hct 27.9 L MCV 95 MCH 30.1 MCHC 31.5 L RDW 17.2 H Plt Count 307 Seg Neutrophils % 81.6 H Lymphocytes % 12.9 L Monocytes % 4.3 Eosinophils % 0.8 Basophils % 0.4 Absolute Neutrophils 10.8 H Absolute Lymphocytes 1.7 Absolute Monocytes 0.6 Absolute Eosinophils 0.1 Absolute Basophils 0.1 Sodium 145.9 H Potassium 4.0 Chloride 118 H Carbon Dioxide 16 L Anion Gap 12 BUN 13 Creatinine 0.62 Est GFR ( Amer) > 60 Est GFR (Non-Af Amer) > 60 Glucose 121 H Calcium 7.3 L 01/30/17 01/30/17 01/30/17 03:07 03:07 09:00 Creatine Kinase 47 41 CK-MB (CK-2) 1.55 Troponin I 0.055 01/30/17 09:00 Creatine Kinase CK-MB (CK-2) 1.51 Troponin I 0.039 Impressions: Chest X-Ray 01/29/17 17:36 IMPRESSION: INDISTINCT INFILTRATE IN THE RIGHT LUNG SUSPICIOUS FOR PNEUMONIA. Assessment & Plan - Diagnosis (1) Sepsis Qualifiers: Sepsis type: sepsis due to unspecified organism Qualified Code(s): A41.9 - Sepsis, unspecified organism Is this a current diagnosis for this admission?: YesPlan: The urinary tract infection as well as a probable pneumonia for the cause for sepsis. Patient's blood pressure has improved. (2) Urinary tract infection Qualifiers: Urinary tract infection type: acute pyelonephritis Qualified Code(s): N10 - Acute pyelonephritis Is this a current diagnosis for this admission?: YesPlan: Has been started on Rocephin for her urinary tract infection. Growing E. coli from her urine culture. (3) Right lower lobe pneumonia Qualifiers: Pneumonia type: due to unspecified organism Qualified Code(s): J18.1 - Lobar pneumonia, unspecified organism Is this a current diagnosis for this admission?: YesPlan: Is on Rocephin and Zithromax. (4) Dementia Is this a current diagnosis for this admission?: Yes (5) Congestive heart failure Is this a current diagnosis for this admission?: YesPlan: Has a history of congestive heart failure. She is acidotic and we will give more fluids overnight. (6) Rheumatoid arthritis Is this a current diagnosis for this admission?: YesPlan: Start her azathioprine and give her a higher dose of prednisone. (7) Hypothyroidism Is this a current diagnosis for this admission?: YesPlan: Continue with Synthroid. (8) Hypertension Is this a current diagnosis for this admission?: YesPlan: Hold her antihypertensives in light of her sepsis and relative hypotension - Time Time Spent with patient: 15-24 minutes - Inpatient Certification Medical Necessity: Need Close Monitoring Due to Risk of Patient Decompensation
[2017-02-01] MEDS ORDERED: ERGOCALCIFEROL (VITAMIN D2) 50000 UNIT (1.25 MG) CAPSULE PO SCH (10:00)
[2017-02-01] MEDS: LEVOTHYROXINE SODIUM 0.1 MG TABLET PO SCH (10:34)
[2017-02-01] MEDS: PREDNISONE 20 MG TABLET PO SCH (10:34)
[2017-02-01] MEDS: SERTRALINE HCL 50 MG TABLET PO SCH (10:34)
[2017-02-01] MEDS: FERROUS SULFATE 325 MG TABLET PO SCH (10:35)
[2017-02-01] MEDS: CALCIUM CARBONATE 250 MG/VITAMIN D3 125 UNIT TABLET PO SCH ×2 (10:35→17:47)
[2017-02-01] MEDS: DOCUSATE SODIUM 100 MG CAPSULE PO SCH ×2 (10:35→17:42)
[2017-02-01] MEDS: FOLIC ACID 1 MG TABLET PO SCH (10:35)
[2017-02-01] MEDS: LANSOPRAZOLE 15 MG TAB.RAP.DR PO SCH (10:39)
[2017-02-01] MEDS: LEVOTHYROXINE SODIUM 0.05 MG TABLET PO SCH (10:39)
[2017-02-01] MEDS: IBUPROFEN 800 MG TABLET PO SCH ×3 (10:39→17:49)
[2017-02-01] MEDS: CYANOCOBALAMIN (VITAMIN B-12) 1,000 MCG TABLET PO SCH (10:39)
[2017-02-01] MEDS: AZITHROMYCIN 500 MG in DEXTROSE 5%-WATER 250 ML IV SCH (10:40)
[2017-02-01] MEDS: NORMAL SALINE 1000 ML 1,000 ML IV PRN (10:40)
[2017-02-01] MEDS: AZATHIOPRINE 50 MG TABLET PO SCH ×2 (10:43→17:48)
[2017-02-01] MEDS: CEFTRIAXONE 1 GM/D5W RTU 1 GM/50 ML RTUPB IV SCH (17:47)
[2017-02-01] MEDS: ATORVASTATIN CALCIUM 10 MG TABLET PO SCH (21:39)
[2017-02-01] MEDS: FENOFIBRATE NANOCRYSTALLIZED 145 MG TABLET PO SCH (21:40)
[2017-02-01] MEDS: BIMATOPROST 0.01% OPH SOLN 2.5 ML/BOTTLE OU SCH (21:40)
[2017-02-01] MEDS: ALPRAZOLAM 0.5 MG TABLET PO PRN (22:10)
[2017-02-02] MEDS: IPRATROPIUM/ALBUTEROL 0.5-2.5 MG/3 ML AMPUL NEB PRN (04:25)
[2017-02-02] MEDS: NORMAL SALINE 1000 ML 1,000 ML IV PRN (06:31)
[2017-02-02] MEDS: PROPAFENONE HCL 150 MG TABLET PO SCH (06:31)
[2017-02-02] MEDS: HEPARIN SOD (PORCINE) 5,000 UNIT/ML 1 ML SYRINGE SUBCUT SCH (06:33)
[2017-02-02 07:36] LABS: HEMATOCRIT 29.1 % (36.0-47.0); HEMOGLOBIN 9.3 g/dL (12.0-15.5); HGB HCT DIFFERENCE -1.2; MEAN CORPUSCULAR HEMOGLOBIN 30.1 pg (27.0-33.4); MEAN CORPUSCULAR HGB CONC 31.8 g/dL (32.0-36.0); MEAN CORPUSCULAR VOLUME 95 fl (80-97); RED BLOOD COUNT 3.07 10^6/uL (3.72-5.28); RED CELL DISTRIBUTION WIDTH 17.5 % (11.5-14.0); WHITE BLOOD COUNT 10.6 10^3/uL (4.0-10.5)
[2017-02-02 07:50] LABS: ANION GAP 14 (5-19); BLOOD UREA NITROGEN 13 mg/dL (7-20); CALCIUM 7.4 mg/dL (8.4-10.2); CARBON DIOXIDE 16 mmol/L (22-30); CHLORIDE 115 mmol/L (98-107); CREATININE RESULT 0.74 mg/dL (0.52-1.25); GLUCOSE 161 mg/dL (75-110); POTASSIUM 3.9 mmol/L (3.6-5.0); SODIUM 145.1 mmol/L (137-145)
[2017-02-02] MEDS: IBUPROFEN 800 MG TABLET PO SCH ×2 (08:11→11:30)
[2017-02-02] MEDS: IPRATROPIUM/ALBUTEROL 0.5-2.5 MG/3 ML AMPUL NEB SCH (08:28)
[2017-02-02 08:29] LABS: BASOPHILS % (MANUAL) 0 % (0-2); EOSINOPHILS % (MANUAL) 0 % (0-6); LYMPHOCYTES % (MANUAL) 4 % (13-45); TOTAL CELLS COUNTED 100
[2017-02-02 08:30] LABS: ANISOCYTOSIS 2+; HYPOCHROMASIA SLIGHT; POLYCHROMASIA SLIGHT; TOXIC GRANULATION SLIGHT; TOXIC VACUOLATION PRESENT
--- NOTE | 2017-02-02 09:19 | PDOC DISCHARGE SUMMARY ---
General - Admit/Disc Date/PCP Admission Date/Primary Care Provider: 01/29/17 20:53 NEYMAR THURSTON MD Discharge Date: 02/02/17 - Discharge Diagnosis (1) Sepsis Is this a current diagnosis for this admission?: YesSummary: Secondary to a urinary tract infection and possibly also secondary to pneumonia. Patient has grown out E. coli and Klebsiella from urine cultures. (2) Urinary tract infection Is this a current diagnosis for this admission?: YesSummary: Secondary to E. coli and Klebsiella. (3) Right lower lobe pneumonia Is this a current diagnosis for this admission?: YesSummary: Treated with Rocephin and Zithromax. Being sent home on oral Ceftin. (4) Dementia Is this a current diagnosis for this admission?: Yes (5) Congestive heart failure Is this a current diagnosis for this admission?: Yes (6) Rheumatoid arthritis Is this a current diagnosis for this admission?: YesSummary: Patient is being sent home on a prednisone taper. (7) Hypothyroidism Is this a current diagnosis for this admission?: Yes (8) Hypertension Is this a current diagnosis for this admission?: Yes (9) Metabolic acidosis Is this a current diagnosis for this admission?: YesSummary: Patient's bicarbonate has been low but has remained stable. Most likely secondary to GI losses because of her diarrhea. The diarrhea is improving. - Additional Information Resuscitation Status: Full Code Discharge Diet: Cardiac, Diabetic Discharge Activity: Activity As Tolerated Home Medications: Alprazolam [Xanax 0.5 mg Tablet] 0.5 mg PO HSP PRN 09/03/14 Fenofibrate 160 mg PO QHS 09/03/14 Ferrous Sulfate [Feosol] 325 mg PO DAILY 09/03/14 Folic Acid 1 mg PO DAILY 09/03/14 Levothyroxine Sodium [Synthroid] 200 mcg PO DAILY 09/03/14 Bimatoprost [Lumigan 0.01% Oph Soln 2.5 ml/Bottle] 1 drop OU QHS 09/05/14 Levothyroxine Sodium [Synthroid 0.025 mg Tablet] 50 mcg PO DAILY 09/05/14 Atorvastatin Calcium [Lipitor 10 mg Tablet] 10 mg PO QHS 01/29/17 Azathioprine 50 mg PO BID 01/29/17 Ca Carbonate/Vitamin D3/Vit K [Calcium + D Soft Chewable Tab] 1 each PO BID 04/09 Cyanocobalamin (Vitamin B-12) [Vitamin B-12 1000 mcg Tablet] 2,000 mcg PO DAILY 01/29/17 Dexlansoprazole [Dexilant 30 mg Capsule] 30 mg PO DAILY 01/29/17 Diclofenac Sodium [Voltaren] 4 gm TOP DAILY PRN 01/29/17 Donepezil HCl [Aricept 5 mg Tablet] 5 mg PO QHS 01/29/17 Ergocalciferol (Vitamin D2) [Vitamin D2] 50,000 unit PO LEE@1000 01/29/17 Hydroxychloroquine Sulfate [Plaquenil 200 mg Tablet] 200 mg PO MOWEFR@1000,2200 01/29/17 Olopatadine HCl [Patanol 0.1% Oph Soln 5 ml] 1 drop OU DAILY PRN 01/29/17 Propafenone HCl 300 mg PO Q8 01/29/17 Sertraline HCl [Zoloft 50 mg Tablet] 50 mg PO DAILY 01/29/17 Ibuprofen [Motrin 800 mg Tablet] 800 mg PO MEALS 01/30/17 Prednisone 5 mg PO BID 01/30/17 Cefuroxime Axetil [Ceftin 500 mg Tablet] 1 tab PO BID #20 tablet 02/02/17 Ipratropium/Albuterol Sulfate [Duoneb 3 ml Ampul] 3 ml NEB RTQ4HP PRN #120 vial.neb 02/02/17 Oxycodone HCl 5 mg PO Q6HP PRN #20 tablet 02/02/17 Prednisone 10 mg PO DAILY #39 tablet 02/02/17 History of Present Illness History of Present Illness: JOHANNA NOVAK is a 81 year old female who presented with a fever of 103.5. Patient also had hypotension and tachycardia along with fever consistent with sepsis. Patient was found to have a right-sided pneumonia as well as a urinary tract infection. The patient was admitted for IV antibiotics. Hospital Course Hospital Course: 81-year-old female with compensated past medical history including congestive heart failure, hypertension, rheumatoid arthritis. The patient presented with sepsis syndrome with fever, tachycardia, hypotension. She was found to have a right-sided pneumonia as well as a urinary tract infection as the cause. Patient was started on Rocephin and Zithromax for coverage of both of her UTI and her pneumonia. The patient clinically improved and she was no longer hypoxic. The patient grew out E. coli and Klebsiella from her urine cultures. Her blood cultures however were negative. The patient had completed a course of Zithromax and Rocephin was changed over to Ceftin to complete a course of total of 14 days of antibiotics. Patient while hospitalized did develop some diarrhea. She also developed metabolic acidosis most likely secondary to the diarrhea. She was given IV fluids on the day of discharge her diarrhea had improved greatly. The patient also had rheumatoid arthritis and was on immunosuppressants when she presented. These were initially held. After she improved clinically she was started back on her azathioprine and she was given a higher dose of prednisone secondary to severe joint pains. She is being sent home on a prednisone taper and will go back to her usual dose of 5 mg twice daily of prednisone. Physical Exam Vital Signs: Temp Pulse Resp BP Pulse Ox 97.4 F 51 L 20 146/71 H 98 02/02/17 07:53 02/02/17 07:53 02/02/17 07:53 02/02/17 07:53 02/02/17 07:53 Intake & Output 02/01/17 02/02/17 02/03/17 06:59 06:59 06:59 Intake Total 690 3445 Output Total 1850 400 Balance -1160 3045 Weight 72.4 kg 71.6 kg General appearance: PRESENT: no acute distress Head exam: PRESENT: atraumatic, normocephalic Eye exam: PRESENT: conjunctiva pink, EOMI, PERRLA. ABSENT: scleral icterus Ear exam: PRESENT: normal external ear exam Mouth exam: PRESENT: moist, tongue midline Neck exam: ABSENT: JVD Respiratory exam: PRESENT: clear to auscultation ana maria. ABSENT: rales, rhonchi, wheezes Cardiovascular exam: PRESENT: RRR. ABSENT: diastolic murmur, rubs, systolic murmur GI/Abdominal exam: PRESENT: normal bowel sounds, soft. ABSENT: distended, guarding, mass, organolmegaly, rebound, tenderness Extremities exam: ABSENT: calf tenderness, clubbing, pedal edema Neurological exam: PRESENT: alert, awake, oriented to person, oriented to place , oriented to time, oriented to situation, CN II-XII grossly intact. ABSENT: motor sensory deficit Psychiatric exam: PRESENT: appropriate affect Skin exam: PRESENT: dry, intact, warm. ABSENT: cyanosis, rash Results Laboratory Results: 02/02/17 06:50 02/02/17 06:50 02/02/17 02/02/17 06:50 06:50 WBC 10.6 H RBC 3.07 L Hgb 9.3 L Hct 29.1 L MCV 95 MCH 30.1 MCHC 31.8 L RDW 17.5 H Plt Count 375 Seg Neutrophils % Not Reportable Lymphocytes % Not Reportable Monocytes % Not Reportable Eosinophils % Not Reportable Basophils % Not Reportable Absolute Neutrophils Not Reportable Absolute Lymphocytes Not Reportable Absolute Monocytes Not Reportable Absolute Eosinophils Not Reportable Absolute Basophils Not Reportable Sodium 145.1 H Potassium 3.9 Chloride 115 H Carbon Dioxide 16 L Anion Gap 14 BUN 13 Creatinine 0.74 Est GFR ( Amer) > 60 Est GFR (Non-Af Amer) > 60 Glucose 161 H Calcium 7.4 L 01/30/17 01/30/17 01/30/17 03:07 03:07 09:00 Creatine Kinase 47 41 CK-MB (CK-2) 1.55 Troponin I 0.055 01/30/17 09:00 Creatine Kinase CK-MB (CK-2) 1.51 Troponin I 0.039 Impressions: Chest X-Ray 01/29/17 17:36 IMPRESSION: INDISTINCT INFILTRATE IN THE RIGHT LUNG SUSPICIOUS FOR PNEUMONIA. Qualifiers PATEINT BEING DISCHARGED WITH ANY OF THE FOLLOWING DIAGNOSIS?: No Plan Discharge Plan: Patient is discharged with home health. She is weak and will benefit from home health with physical therapy. Patient will follow up with primary care in 1 week. Time Spent: Greater than 30 Minutes
[2017-02-02] MEDS: DOCUSATE SODIUM 100 MG CAPSULE PO SCH (09:31)
[2017-02-02] MEDS: PREDNISONE 20 MG TABLET PO SCH (09:37)
[2017-02-02] MEDS: LEVOTHYROXINE SODIUM 0.05 MG TABLET PO SCH (09:38)
[2017-02-02] MEDS: LEVOTHYROXINE SODIUM 0.1 MG TABLET PO SCH (09:38)
[2017-02-02] MEDS: AZATHIOPRINE 50 MG TABLET PO SCH (09:38)
[2017-02-02] MEDS: FERROUS SULFATE 325 MG TABLET PO SCH (09:40)
[2017-02-02] MEDS: CALCIUM CARBONATE 250 MG/VITAMIN D3 125 UNIT TABLET PO SCH (09:40)
[2017-02-02] MEDS: FOLIC ACID 1 MG TABLET PO SCH (09:40)
[2017-02-02] MEDS: HYDROXYCHLOROQUINE SULFATE 200 MG TABLET PO SCH (09:41)
[2017-02-02] MEDS: SERTRALINE HCL 50 MG TABLET PO SCH (09:41)
[2017-02-02] MEDS: AZITHROMYCIN 500 MG in DEXTROSE 5%-WATER 250 ML IV SCH (09:41)
[2017-02-02] MEDS: LANSOPRAZOLE 15 MG TAB.RAP.DR PO SCH (09:41)
[2017-02-02] MEDS: CYANOCOBALAMIN (VITAMIN B-12) 1,000 MCG TABLET PO SCH (09:41)
[2017-02-02 11:48] VITALS: BP 154/81
== END 2017-02-02 13:43 | disposition home or self-care (01) | DRG 871 ==
LOC: ER 16:47 → EH 20:53 → UNDOADMIN 20:59 → 5 22:56
PROVIDERS: ADMIT Internal Medicine; ATTEND Internal Medicine
PROC: 3E0F73Z Introduction of Anti-inflammatory into Respiratory Tract, Via Natural or Artificial Opening (ICD-10-PCS; principal; 2017-01-30)
DX: A41.9 Sepsis, unspecified organism (principal); J18.9 Pneumonia, unspecified organism; N39.0 Urinary tract infection, site not specified; E87.2 Acidosis; F03.90 Unspecified dementia, unspecified severity, without behavioral disturbance, psychotic disturbance, mood disturbance, and anxiety; I11.0 Hypertensive heart disease with heart failure; I50.9 Heart failure, unspecified; M06.9 Rheumatoid arthritis, unspecified; B96.20 Unspecified Escherichia coli [E. coli] as the cause of diseases classified elsewhere; B96.1 Klebsiella pneumoniae [K. pneumoniae] as the cause of diseases classified elsewhere; E03.9 Hypothyroidism, unspecified; E11.9 Type 2 diabetes mellitus without complications; K21.9 Gastro-esophageal reflux disease without esophagitis; F41.9 Anxiety disorder, unspecified; F32.9 Major depressive disorder, single episode, unspecified; Z79.52 Long term (current) use of systemic steroids; Z83.3 Family history of diabetes mellitus; Z82.49 Family history of ischemic heart disease and other diseases of the circulatory system; Z79.899 Other long term (current) drug therapy; Z88.1 Allergy status to other antibiotic agents; Z91.048 Other nonmedicinal substance allergy status; Z79.84 Long term (current) use of oral hypoglycemic drugs
CPT/HCPCS: 36415; 71020; 80048; 80053; 81001; 82550; 82553; 82803; 82962; 83605; 84484; 85025; 85610; 87040; 87086; 87088; 87186; 93005; 93010; 94640; 94799; 96361; 96365; 99285; J0456; J0696; J1644; J1815; J3490; J7030; J7060; J7500; J7512; J7620

== ENCOUNTER 2017-02-04 13:23 | Emergency (ER) | payer MEDICARE ==
[2017-02-04] MEDS ORDERED: ASPIRIN 81 MG TABLET, CHEWABLE PO ONE (16:07)
--- NOTE | 2017-02-04 16:08 | ER Document Report ---
ED Medical Screen (RME) - General Mode of Arrival: Ambulatory Information source: Patient, Relative TRAVEL OUTSIDE OF THE [place] IN LAST 30 DAYS: No - HPI Patient complains to provider of: Bilateral leg swelling Onset: Other - 2 days ago Associated Symptoms: Other - see notes above <ZAMZAM NEWMAN - Last Filed: 02/04/17 16:40> <PAYTON YOST - Last Filed: 02/04/17 21:29> - General Chief Complaint: Leg Swelling Stated Complaint: LEG SWELLING/REVISIT Time Seen by Provider: 02/04/17 15:54 Notes: 81 year old female with history of atrial fibrillation presents to the ED accompanied by her daughter who complains of bilateral leg swelling that started 2 days ago. Daughter reports that the patient was hospitalized secondary to sepsis and was discharged 2 days ago. Patient's legs were not swollen at the time of discharge, but noticed the swelling approximately 4 hours after discharge. Patient denies chest pain, nausea, vomiting, or abdominal pain. Patient was on Lasix, but was recently taken off. (ZAMZAM NEWMAN) - Related Data Allergies/Adverse Reactions: ciprofloxacin [From Cipro] Allergy (Verified 01/29/17 17:03) clindamycin [Clindamycin] Allergy (Verified 01/29/17 17:02) hives/rash teriparatide [From Forteo] Allergy (Verified 01/29/17 17:02) Shortness of Breath tramadol [Tramadol] Adverse Reaction (Verified 01/29/17 17:02) Dizziness hair dye Allergy (Uncoded 01/29/17 17:02) rash Past Medical History - General Information source: Patient - Social History Chew tobacco use (# tins/day): No Frequency of alcohol use: None Drug Abuse: None Family history: Reviewed & Not Pertinent - Past Medical History Cardiac Medical History: Reports: Hx Atrial Fibrillation, Hx Congestive Heart Failure, Hx Hypercholesterolemia, Hx Hypertension Endocrine Medical History: Reports: Hx Diabetes Mellitus Type 2, Hx Hypothyroidism Renal/ Medical History: Denies: Hx Peritoneal Dialysis GI Medical History: Reports: Hx Gastroesophageal Reflux Disease, Hx Irritable Bowel Musculoskeltal Medical History: Reports Hx Arthritis Psychiatric Medical History: Reports: Hx Anxiety, Hx Dementia, Hx Depression Past Surgical History: Reports: Hx Abdominal Surgery - Gastrostomy tube for dysphagia in the past, but has been removed. - Immunizations Hx Diphtheria, Pertussis, Tetanus Vaccination: No <ZAMZAM NEWMAN - Last Filed: 02/04/17 16:40> Review of Systems - Review of Systems Constitutional: No symptoms reported EENT: No symptoms reported Cardiovascular: No symptoms reported. denies: Chest pain Respiratory: No symptoms reported Gastrointestinal: No symptoms reported. denies: Abdominal pain, Nausea, Vomiting Genitourinary: No symptoms reported Female Genitourinary: No symptoms reported Musculoskeletal: See HPI, Leg swelling - bilateral Skin: No symptoms reported Hematologic/Lymphatic: No symptoms reported Neurological/Psychological: No symptoms reported -: Yes All other systems reviewed and negative <NEWMAN,ZAMZAM - Last Filed: 02/04/17 16:40> Physical Exam - General General appearance: Alert In distress: None - Respiratory Respiratory status: No respiratory distress Breath sounds: Other - trace crackles to the right lower lobe - Cardiovascular Rhythm: Regular Heart sounds: Normal auscultation Murmur: Yes - 3/6 systolic murmur Friction rub: No Gallop: None auscultated - Extremities General upper extremity: Normal inspection, Normal ROM General lower extremity: Edema - 2+ pitting edema to the level of the bilateral ankles, Normal ROM. No: Normal inspection <ZAMZAM NEWMAN - Last Filed: 02/04/17 16:40> Course - Laboratory Result Diagrams: 02/04/17 16:45 02/04/17 16:45 <PAYTON YOST - Last Filed: 02/04/17 21:29> - Vital Signs Vital signs: Temp Pulse Resp BP Pulse Ox 98.3 F 83 19 158/88 H 100 02/04/17 13:42 02/04/17 13:42 02/04/17 19:01 02/04/17 19:01 02/04/17 19:01 - Laboratory Laboratory results interpreted by me: 02/04/17 02/04/17 02/04/17 16:45 16:45 16:45 WBC 12.5 H RBC 3.33 L Hgb 9.9 L Hct 31.9 L MCHC 31.0 L RDW 17.8 H Seg Neuts % (Manual) 90 H Band Neutrophils % 1 L Lymphocytes % (Manual) 5 L Metamyelocytes % 1 H Abs Neuts (Manual) 11.5 H Chloride 113 H Carbon Dioxide 21 L BUN 24 H Calcium 7.6 L AST 12 L NT-Pro-B Natriuret Pep 3150 H Total Protein 6.1 L Albumin 3.0 L Doctor's Discharge <ZAMZAM NEWMAN - Last Filed: 02/04/17 16:40> <PAYTON YOST - Last Filed: 02/04/17 21:29> - Discharge Clinical Impression: Bilateral lower extremity edema Condition: Good Disposition: HOME, SELF-CARE Additional Instructions: Please continue to wear compression stockings throughout the day for the next 1 week. If this fails to resolve the swelling in your legs, you can follow-up with your primary care doctor for consideration of starting furosemide for a short period. Please keep the legs elevated. Return to the emergency department immediately if you develop increased shortness of breath, chest pain , pass out, develop a fever greater than 101F, or have any other symptoms that are worrisome to you. Referrals: GINI BROCK MD [Primary Care Provider] - Follow up as needed Scribe Documentation - Scribe Written by Shaun:: Shaun Burger, 02/04/2017 1700 acting as scribe for :: Hector <ZAMZAM NEWMAN - Last Filed: 02/04/17 16:40>
--- NOTE | 2017-02-04 16:33 | RADIOLOGY REPORT (SQ) ---
EXAM DESCRIPTION: CHEST SINGLE VIEW COMPLETED DATE/TIME: 02/04/2017 4:25 pm REASON FOR STUDY: SOB, h/o chf COMPARISON: 01/29/2017 EXAM PARAMETERS: NUMBER OF VIEWS: One view. TECHNIQUE: Single frontal radiographic view of the chest acquired. RADIATION DOSE: NA LIMITATIONS: None. FINDINGS: LUNGS AND PLEURA: The patchy airspace opacities are noted in the right lung, improved in c omparison the prior study. Pulmonary vascular congestion interstitial prominence, right greater than left no pneumothorax. No significant effusion. MEDIASTINUM AND HILAR STRUCTURES: No masses. Contour normal. HEART AND VASCULAR STRUCTURES: Cardiac size remains enlarged. BONES: No acute findings. HARDWARE: None in the chest. OTHER: No other significant finding. IMPRESSION: Patchy airspace opacities noted throughout the right lung, improved in comparison the pr ior study from 01/29/2017. Pulmonary vascular congestion interstitial prominence slightly greater on t he right than on the left. TECHNICAL DOCUMENTATION: JOB ID: [id number]
[2017-02-04 17:10] LABS: HEMATOCRIT 31.9 % (36.0-47.0); HEMOGLOBIN 9.9 g/dL (12.0-15.5); HGB HCT DIFFERENCE -2.2; MEAN CORPUSCULAR HEMOGLOBIN 29.7 pg (27.0-33.4); MEAN CORPUSCULAR VOLUME 96 fl (80-97); RED BLOOD COUNT 3.33 10^6/uL (3.72-5.28); RED CELL DISTRIBUTION WIDTH 17.8 % (11.5-14.0); WHITE BLOOD COUNT 12.5 10^3/uL (4.0-10.5)
[2017-02-04 17:14] LABS: PROTHROMBIN TIME 14.2 SEC (11.4-15.4)
[2017-02-04 17:28] LABS: ALANINE AMINOTRANSFERASE 19 U/L (9-52); ALKALINE PHOSPHATASE 53 U/L (38-126); ANION GAP 10 (5-19); ASPARTATE AMINO TRANSFERASE 12 U/L (14-36); BILIRUBIN,DIRECT 0.3 mg/dL (0.0-0.4); BILIRUBIN,TOTAL 0.3 mg/dL (0.2-1.3); BLOOD UREA NITROGEN 24 mg/dL (7-20); CALCIUM 7.6 mg/dL (8.4-10.2); CARBON DIOXIDE 21 mmol/L (22-30); CHLORIDE 113 mmol/L (98-107); CREATINE KINASE 39 U/L (30-135); CREATININE RESULT 0.63 mg/dL (0.52-1.25); GLUCOSE 108 mg/dL (75-110); POTASSIUM 4.1 mmol/L (3.6-5.0); SODIUM 143.6 mmol/L (137-145); TOTAL PROTEIN 6.1 g/dL (6.3-8.2)
[2017-02-04 17:40] LABS: BAND NEUTROPHILS % (MANUAL) 1 % (3-5); BASOPHILS % (MANUAL) 0 % (0-2); CREATINE KINASE MB 1.35 ng/mL (<4.55); EOSINOPHILS % (MANUAL) 0 % (0-6); LYMPHOCYTES % (MANUAL) 5 % (13-45); TOTAL CELLS COUNTED 100
[2017-02-04 17:43] LABS: TROPONIN I 0.034 ng/mL
[2017-02-04 17:47] LABS: ANISOCYTOSIS 1+; OVALOCYTES SLIGHT; PLATELET CLUMPS PRESENT; POIKILOCYTOSIS SLIGHT; POLYCHROMASIA SLIGHT; TARGET CELLS SLIGHT; TOXIC GRANULATION SLIGHT
[2017-02-04 17:49] LABS: HYPOCHROMASIA SLIGHT
--- NOTE | 2017-02-04 18:46 | ER Document Report ---
ED General - General Chief Complaint: Leg Swelling Stated Complaint: LEG SWELLING/REVISIT Time Seen by Provider: 02/04/17 15:54 Mode of Arrival: Ambulatory Cannot obtain history due to: Dementia Notes: Patient is an 81-year-old female with past medical history of advanced dementia , recently hospitalized for sepsis secondary to a right lower lobe pneumonia and a urinary tract infection who presents with bilateral lower extremity edema that has been present since shortly after discharge. Family has been treating with compression stockings noted improvement although they state the patient continued to be concerned so they brought her to the emergency department for further evaluation. Nothing has seemed to worsen the edema. She does have a history of peripheral edema in the past and did receive a large quantity of IV fluids during her hospitalization due to her sepsis. She has denied any increased orthopnea, dyspnea, exertional dyspnea, chest pain or syncope. The patient has not been seen by her primary care doctor regarding today's concerns. She denies any pain to the area. History is otherwise limited secondary to patient's advanced dementia. TRAVEL OUTSIDE OF THE [place] IN LAST 30 DAYS: No - Related Data Allergies/Adverse Reactions: ciprofloxacin [From Cipro] Allergy (Verified 01/29/17 17:03) clindamycin [Clindamycin] Allergy (Verified 01/29/17 17:02) hives/rash teriparatide [From Forteo] Allergy (Verified 01/29/17 17:02) Shortness of Breath tramadol [Tramadol] Adverse Reaction (Verified 01/29/17 17:02) Dizziness hair dye Allergy (Uncoded 01/29/17 17:02) rash Past Medical History - General Information source: Patient - Social History Smoking Status: Never Smoker Chew tobacco use (# tins/day): No Frequency of alcohol use: None Drug Abuse: None Lives with: Family Family History: Reviewed & Not Pertinent Patient has suicidal ideation: No Patient has homicidal ideation: No - Past Medical History Cardiac Medical History: Reports: Hx Atrial Fibrillation, Hx Congestive Heart Failure, Hx Hypercholesterolemia, Hx Hypertension Endocrine Medical History: Reports: Hx Diabetes Mellitus Type 2, Hx Hypothyroidism Renal/ Medical History: Denies: Hx Peritoneal Dialysis GI Medical History: Reports: Hx Gastroesophageal Reflux Disease, Hx Irritable Bowel Musculoskeltal Medical History: Reports Hx Arthritis Psychiatric Medical History: Reports: Hx Anxiety, Hx Dementia, Hx Depression Past Surgical History: Reports: Hx Abdominal Surgery - Gastrostomy tube for dysphagia in the past, but has been removed. - Immunizations Hx Diphtheria, Pertussis, Tetanus Vaccination: No Hx Pneumococcal Vaccination: 06/24/13 Review of Systems - Review of Systems Notes: Constitutional: Negative for fever. HENT: Negative for sore throat. Eyes: Negative for visual changes. Cardiovascular: Negative for chest pain. Respiratory: Negative for shortness of breath. Gastrointestinal: Negative for abdominal pain, vomiting or diarrhea. Genitourinary: Negative for dysuria. Musculoskeletal: Positive for bilateral lower extremity edema Skin: Negative for rash. Neurological: Negative for headaches, weakness or numbness. 10 point ROS negative except as marked above and in HPI. Physical Exam - Vital signs Vitals: Temp Pulse Resp BP Pulse Ox 98.3 F 83 20 143/60 H 97 02/04/17 13:42 02/04/17 13:42 02/04/17 13:42 02/04/17 13:42 02/04/17 13:42 Interpretation: Hypertensive Notes: PHYSICAL EXAMINATION: GENERAL: Well-appearing, well-nourished and in no acute distress. HEAD: Atraumatic, normocephalic. EYES: Pupils equal round and reactive to light, extraocular movements intact, sclera anicteric, conjunctiva are normal. ENT: nares patent, oropharynx clear without exudates. Moist mucous membranes. NECK: Normal range of motion, supple without lymphadenopathy LUNGS: Breath sounds clear to auscultation bilaterally and equal. No wheezes rales or rhonchi. HEART: Regular rate and rhythm without murmurs ABDOMEN: Soft, nontender, normoactive bowel sounds. No guarding, no rebound. No masses appreciated. EXTREMITIES: Normal range of motion, trace to 1+ pitting edema bilateral lower extremities to the ankle NEUROLOGICAL: No focal neurological deficits. Moves all extremities spontaneously and on command. PSYCH: Normal mood, normal affect. SKIN: Warm, Dry, normal turgor, no rashes or lesions noted. Course - Re-evaluation Re-evalutation: 02/04/17 18:42 Patient presents with bilateral lower extremity edema since being discharged in the hospital several days ago. I did admit this patient to the hospital on 01/29. On initial assessment she appears dramatically improved relative to when I saw her 6 days ago. She has trace to 1+ pitting edema in the bilateral lower extremities that is equal and symmetric. I do not suspect a DVT. For unclear reasons, in triage and apparent chest pain and dyspnea workup was ordered. Patient is denying any of these complaints and I am not certain why this was obtained. Her troponin is noted to be slightly above the lower limit of normal at 0.034. This is actually lower than the last troponin that was obtained prior to her discharge and I do not believe it is clinically significant. Patient denies any increased orthopnea, chest pain, shortness of breath, or exertional dyspnea. I have encouraged the patient and her family to continue to apply compression stockings regularly to the lower extremities for the next 1 week and then follow-up with her outpatient doctor should the edema persists for consideration of a very short course of Lasix. Laboratories sent from triage are improved from discharge. Chest x-ray likewise continues to show patchy airspace disease in the right lung although again improved from the last chest x-ray and I suspect that this is a resolving pneumonia and patient is still on antibiotics at this time treating this. At this time will discharge with return precautions and follow-up recommendations. Verbal discharge instructions given a the bedside and opportunity for questions given. Medication warnings reviewed. Patient is in agreement with this plan and has verbalized understanding of return precautions and the need for primary care follow-up in the next 24-72 hours. - Vital Signs Vital signs: Temp Pulse Resp BP Pulse Ox 98.3 F 83 19 158/88 H 100 02/04/17 13:42 02/04/17 13:42 02/04/17 19:01 02/04/17 19:01 02/04/17 19:01 - Laboratory Result Diagrams: 02/04/17 16:45 02/04/17 16:45 Laboratory results interpreted by me: 02/04/17 02/04/17 02/04/17 16:45 16:45 16:45 WBC 12.5 H RBC 3.33 L Hgb 9.9 L Hct 31.9 L MCHC 31.0 L RDW 17.8 H Seg Neuts % (Manual) 90 H Band Neutrophils % 1 L Lymphocytes % (Manual) 5 L Metamyelocytes % 1 H Abs Neuts (Manual) 11.5 H Chloride 113 H Carbon Dioxide 21 L BUN 24 H Calcium 7.6 L AST 12 L NT-Pro-B Natriuret Pep 3150 H Total Protein 6.1 L Albumin 3.0 L - Diagnostic Test Radiology reviewed: Image reviewed, Reports reviewed Radiology results interpreted by me: 02/04/17 18:44 Chest x-ray: Right lung with patchy airspace disease improved from prior - EKG Interpretation by Me Additional EKG results interpreted by me: 02/04/17 18:[address] elevations or depressions. Left bundle branch block pattern. QTC is 488. Rate is 86. Discharge - Discharge Clinical Impression: Bilateral lower extremity edema Condition: Good Disposition: HOME, SELF-CARE Additional Instructions: Please continue to wear compression stockings throughout the day for the next 1 week. If this fails to resolve the swelling in your legs, you can follow-up with your primary care doctor for consideration of starting furosemide for a short period. Please keep the legs elevated. Return to the emergency department immediately if you develop increased shortness of breath, chest pain , pass out, develop a fever greater than 101F, or have any other symptoms that are worrisome to you. Referrals: GINI BROCK MD [Primary Care Provider] - Follow up as needed
[2017-02-04 19:05] VITALS: BP 158/88
--- NOTE | 2017-02-05 08:27 | EKG REPORT ---
SEVERITY:- ABNORMAL ECG - SINUS RHYTHM LEFT BUNDLE BRANCH BLOCK : Confirmed by: Radha Ruiz 05-Feb-2017 08:26:25
== END 2017-02-04 19:20 | disposition home or self-care (01) ==
LOC: ER 13:23
DX: R60.0 Localized edema (principal); M79.89 Other specified soft tissue disorders; F03.90 Unspecified dementia, unspecified severity, without behavioral disturbance, psychotic disturbance, mood disturbance, and anxiety
CPT/HCPCS: 93005; 99284; 36415; 82553; 82550; 85025; 85610; 80053; 84484; 83880; 71010; 93010; A9270

== ENCOUNTER → 2017-04-09 | Outpatient (CLI) | payer MEDICARE ==
--- NOTE | 2017-04-10 16:01 | RADIOLOGY REPORT (SQ) ---
EXAM DESCRIPTION: CHEST PA/LATERAL COMPLETED DATE/TIME: 04/09/2017 4:58 pm REASON FOR STUDY: PNEUMONIA COMPARISON: Two-view chest 01/29/2017, 02/04/2017 EXAM PARAMETERS: NUMBER OF VIEWS: two views TECHNIQUE: Digital Frontal and Lateral radiographic views of the chest acquired. RADIATION DOSE: NA LIMITATIONS: none FINDINGS: LUNGS AND PLEURA: Right-sided airspace disease seen on 02/04/2017 has cleared. On today's study, there is bandlike lingular atelectasis. No fluffy right or left lung infiltrates w orrisome for acute pneumonia or pulmonary edema. No pleural effusions. No pneumothorax. MEDIASTINUM AND HILAR STRUCTURES: No masses or contour abnormalities. HEART AND VASCULAR STRUCTURES: Stable mild cardiomegaly BONES: No acute findings. HARDWARE: None in the chest. OTHER: No other significant finding. IMPRESSION: Minimal bandlike atelectasis in the lingula. No fluffy alveolar infiltrates worrisome for edema or pneumonia. TECHNICAL DOCUMENTATION: JOB ID: [id number] [employer]- All Rights Reserved
== END ==
LOC: OD 16:36
PROVIDERS: ATTEND Physician Assistant
DX: J17 Pneumonia in diseases classified elsewhere (principal)
CPT/HCPCS: 71020

== ENCOUNTER 2017-05-21 17:04 | Emergency (ER) | payer MEDICARE ==
[2017-05-21 17:10] VITALS: BP 138/78
--- NOTE | 2017-05-21 18:17 | ER Document Report ---
ED Medical Screen (RME) - General Chief Complaint: Leg Swelling Stated Complaint: PAINFUL, SWOLLEN FEET, WRIST PAIN Time Seen by Provider: 05/21/17 18:15 Notes: Patient has chronic urinary tract infections. Daughter brings patient in because she is been complaining of severe low back pain. No known trauma. No fevers. Daughter states patient has been septic twice before most recently this summer. Patient also has been having some swelling mainly of the lower extremities. TRAVEL OUTSIDE OF THE [place] IN LAST 30 DAYS: No - Related Data Allergies/Adverse Reactions: ciprofloxacin [From Cipro] Allergy (Verified 05/21/17 17:09) clindamycin [Clindamycin] Allergy (Verified 05/21/17 17:09) hives/rash teriparatide [From Forteo] Allergy (Verified 05/21/17 17:09) Shortness of Breath tramadol [Tramadol] Adverse Reaction (Verified 05/21/17 17:09) Dizziness hair dye Allergy (Uncoded 05/21/17 17:09) rash Past Medical History - Social History Family history: Reviewed & Not Pertinent - Past Medical History Cardiac Medical History: Reports: Hx Atrial Fibrillation, Hx Congestive Heart Failure, Hx Hypercholesterolemia, Hx Hypertension Endocrine Medical History: Reports: Hx Diabetes Mellitus Type 2, Hx Hypothyroidism Renal/ Medical History: Denies: Hx Peritoneal Dialysis GI Medical History: Reports: Hx Gastroesophageal Reflux Disease, Hx Irritable Bowel Musculoskeltal Medical History: Reports Hx Arthritis Psychiatric Medical History: Reports: Hx Anxiety, Hx Dementia, Hx Depression Past Surgical History: Reports: Hx Abdominal Surgery - Gastrostomy tube for dysphagia in the past, but has been removed. - Immunizations Hx Diphtheria, Pertussis, Tetanus Vaccination: No Physical Exam - Vital signs Vitals: Temp Pulse Resp BP Pulse Ox 99.1 F 65 18 138/78 H 97 05/21/17 17:08 05/21/17 17:08 05/21/17 17:08 05/21/17 17:08 05/21/17 17:08 Course - Vital Signs Vital signs: Temp Pulse Resp BP Pulse Ox 99.1 F 65 18 138/78 H 97 05/21/17 17:08 05/21/17 17:08 05/21/17 17:08 05/21/17 17:08 05/21/17 17:08
--- NOTE | 2017-05-21 19:01 | RADIOLOGY REPORT (SQ) ---
EXAM DESCRIPTION: L SPINE 2 VIEWS COMPLETED DATE/TIME: 05/21/2017 6:49 pm REASON FOR STUDY: pain COMPARISON: November 2015 NUMBER OF VIEWS: Two views. TECHNIQUE: AP and lateral radiographic images acquired of the lumbar spine. LIMITATIONS: None. FINDINGS: MINERALIZATION: Normal. SEGMENTATION: Normal. No transitional anatomy. ALIGNMENT: There is grade 1 anterolisthesis of L4 in relation L5 and minimal anterolisthesis of L3 in relation L4. There is grade 1 anterolisthesis of L2 in relation L3. VERTEBRAE: Maintained height. No fracture or worrisome bone lesion. DISCS: There is almost complete loss of the L2-L3 and L4-L5 disc space heights with associated osteop hytic lipping. POSTERIOR ELEMENTS: Pedicles and facets are intact. No pars defect or posterior arch defects. Degen erative changes are identified in the facet articulations at multiple levels. HARDWARE: None in the spine. PARASPINAL SOFT TISSUES: Normal. PELVIS: Intact as visualized. No fractures or worrisome bone lesions. SI joints intact. OTHER: No other significant finding. IMPRESSION: Degenerative changes as noted above. TECHNICAL DOCUMENTATION: JOB ID: [id number] [employer]- All Rights Reserved
[2017-05-21 19:47] LABS: APPEARANCE,URINE TURBID; BILIRUBIN,URINE NEGATIVE (NEGATIVE); GLUCOSE, URINE NEGATIVE (NEGATIVE); KETONES,URINE NEGATIVE (NEGATIVE); LEUKOCYTE ESTERASE,URINE LARGE (NEGATIVE); NITRITE,URINE POSITIVE (NEGATIVE); PROTEIN,URINE 30 mg/dL (NEGATIVE); URINE SPECIFIC GRAVITY 1.021; UROBILINOGEN,URINE NEGATIVE mg/dL (<2.0)
[2017-05-21 19:58] LABS: HEMOGLOBIN 11.8 g/dL (12.0-15.5); HGB HCT DIFFERENCE -0.6; MEAN CORPUSCULAR HEMOGLOBIN 32.1 pg (27.0-33.4); MEAN CORPUSCULAR HGB CONC 32.9 g/dL (32.0-36.0); MEAN CORPUSCULAR VOLUME 98 fl (80-97); RED BLOOD COUNT 3.67 10^6/uL (3.72-5.28); RED CELL DISTRIBUTION WIDTH 17.4 % (11.5-14.0); WHITE BLOOD COUNT 13.6 10^3/uL (4.0-10.5)
[2017-05-21 19:59] LABS: ALANINE AMINOTRANSFERASE 19 U/L (9-52); ALBUMIN 3.5 g/dL (3.5-5.0); ALKALINE PHOSPHATASE 52 U/L (38-126); ANION GAP 10 (5-19); ASPARTATE AMINO TRANSFERASE 14 U/L (14-36); BILIRUBIN,DIRECT 0.3 mg/dL (0.0-0.4); BILIRUBIN,TOTAL 0.3 mg/dL (0.2-1.3); BLOOD UREA NITROGEN 26 mg/dL (7-20); CALCIUM 9.9 mg/dL (8.4-10.2); CARBON DIOXIDE 19 mmol/L (22-30); CHLORIDE 112 mmol/L (98-107); CREATININE RESULT 0.68 mg/dL (0.52-1.25); GLUCOSE 98 mg/dL (75-110); POTASSIUM 4.2 mmol/L (3.6-5.0); SODIUM 140.8 mmol/L (137-145); TOTAL PROTEIN 6.3 g/dL (6.3-8.2)
[2017-05-21 20:10] LABS: BASOPHILS % (MANUAL) 0 % (0-2); EOSINOPHILS % (MANUAL) 0 % (0-6); LYMPHOCYTES % (MANUAL) 16 % (13-45); TOTAL CELLS COUNTED 100
[2017-05-21 20:12] LABS: ANISOCYTOSIS 1+; OVALOCYTES SLIGHT; PLATELET CLUMPS PRESENT; TOXIC GRANULATION SLIGHT
--- NOTE | 2017-05-21 22:13 | ER Document Report ---
ED General - General Chief Complaint: Leg Swelling Stated Complaint: PAINFUL, SWOLLEN FEET, WRIST PAIN Time Seen by Provider: 05/21/17 18:15 Notes: The patient is an 82-year-old female, past medical history rheumatoid arthritis , frequent urinary tract infections, presents with low back pain, dysuria and bilateral swollen feet for the past several days. She takes 20 mg prednisone daily and 20 mg Lasix, but did not take her Lasix dose for the past few days. She said that usually a prednisone taper will help her symptoms. She denies fevers, nausea, vomiting, difficulty walking, flank pain, abdominal pain, saddle anesthesia, rash or calf tenderness. TRAVEL OUTSIDE OF THE [place] IN LAST 30 DAYS: No - Related Data Allergies/Adverse Reactions: ciprofloxacin [From Cipro] Allergy (Verified 05/21/17 17:09) clindamycin [Clindamycin] Allergy (Verified 05/21/17 17:09) hives/rash teriparatide [From Forteo] Allergy (Verified 05/21/17 17:09) Shortness of Breath tramadol [Tramadol] Adverse Reaction (Verified 05/21/17 17:09) Dizziness hair dye Allergy (Uncoded 05/21/17 17:09) rash Past Medical History - General Information source: Patient - Social History Smoking Status: Never Smoker Chew tobacco use (# tins/day): No Frequency of alcohol use: None Drug Abuse: None Family History: Reviewed & Not Pertinent - Past Medical History Cardiac Medical History: Reports: Hx Atrial Fibrillation, Hx Congestive Heart Failure, Hx Hypercholesterolemia, Hx Hypertension Endocrine Medical History: Reports: Hx Diabetes Mellitus Type 2, Hx Hypothyroidism Renal/ Medical History: Denies: Hx Peritoneal Dialysis GI Medical History: Reports: Hx Gastroesophageal Reflux Disease, Hx Irritable Bowel Musculoskeltal Medical History: Reports Hx Arthritis Psychiatric Medical History: Reports: Hx Anxiety, Hx Dementia, Hx Depression Past Surgical History: Reports: Hx Abdominal Surgery - Gastrostomy tube for dysphagia in the past, but has been removed. - Immunizations Hx Diphtheria, Pertussis, Tetanus Vaccination: No Hx Pneumococcal Vaccination: 06/24/13 Review of Systems - Review of Systems Notes: REVIEW OF SYSTEMS: CONSTITUTIONAL: -fevers, -chills EENT: -eye pain, -difficulty swallowing, -nasal congestion CARDIOVASCULAR:-chest pain, -syncope. RESPIRATORY: -cough, -SOB GASTROINTESTINAL: -abdominal pain, - nausea, -vomiting, -diarrhea GENITOURINARY: -dysuria, -hematuria MUSCULOSKELETAL: +swollen feet, +back pain, +right wrist pain, -neck pain SKIN: -rash or skin lesions. HEMATOLOGIC: -easy bruising or bleeding. LYMPHATIC: -swollen, enlarged glands. NEUROLOGICAL: -altered mental status or loss of consciousness, -headache, - neurologic symptoms PSYCHIATRIC: -anxiety, -depression. ALL OTHER SYSTEMS REVIEWED AND NEGATIVE. Physical Exam - Vital signs Vitals: Temp Pulse Resp BP Pulse Ox 99.1 F 65 18 138/78 H 97 05/21/17 17:08 05/21/17 17:08 05/21/17 17:08 05/21/17 17:08 05/21/17 17:08 - Notes Notes: PHYSICAL EXAMINATION: GENERAL: Well-appearing, well-nourished and in no acute distress. HEAD: Atraumatic, normocephalic. EYES: Pupils equal round and reactive to light, extraocular movements intact, sclera anicteric, conjunctiva are normal. ENT: nares patent, oropharynx clear without exudates. Moist mucous membranes. NECK: Normal range of motion, supple without lymphadenopathy LUNGS: Breath sounds clear to auscultation bilaterally and equal. No wheezes rales or rhonchi. HEART: Regular rate and rhythm without murmurs ABDOMEN: Soft, nontender, normoactive bowel sounds. No guarding, no rebound. No masses appreciated. EXTREMITIES: 1+ edema up to b/l ankles. Normal range of motion, no pitting or edema. No cyanosis. NEUROLOGICAL: Cranial nerves grossly intact. Normal speech, normal gait. Normal sensory and motor exams. PSYCH: Normal mood, normal affect. SKIN: Warm, Dry, normal turgor, no rashes or lesions noted. Course - Re-evaluation Re-evalutation: Patient appears well. Her urinalysis shows evidence of a UTI, but the rest of her labs are unremarkable, other than a leukocytosis which is chronic for her and may be from her chronic steroid use. Will begin her on Macrobid and instructed her to take her Lasix to help with the ankle swelling. She is also requesting a prednisone taper, since this usually helps with her joint aches and rheumatoid arthritis flares. She has an appointment with her primary care physician soon. Given strict return precautions and she understands. - Vital Signs Vital signs: Temp Pulse Resp BP Pulse Ox 99.1 F 65 18 138/78 H 97 05/21/17 17:08 05/21/17 17:08 05/21/17 17:08 05/21/17 17:08 05/21/17 17:08 - Laboratory Result Diagrams: 05/21/17 19:24 05/21/17 19:24 Laboratory results interpreted by me: 05/21/17 05/21/17 05/21/17 19:24 19:24 19:24 WBC 13.6 H RBC 3.67 L Hgb 11.8 L MCV 98 H RDW 17.4 H Abs Neuts (Manual) 10.1 H Chloride 112 H Carbon Dioxide 19 L BUN 26 H Urine Protein 30 H Urine Blood MODERATE H Urine Nitrite POSITIVE H Ur Leukocyte Esterase LARGE H - Diagnostic Test Radiology reviewed: Image reviewed, Reports reviewed Radiology results interpreted by me: Lumbar x-ray: NAD Discharge - Discharge Clinical Impression: Peripheral edema UTI (urinary tract infection) Qualifiers: Urinary tract infection type: acute cystitis Hematuria presence: without hematuria Qualified Code(s): N30.00 - Acute cystitis without hematuria Rheumatoid arthritis Qualifiers: Rheumatoid arthritis location: multiple sites Rheumatoid factor presence: unspecified presence Qualified Code(s): M06.9 - Rheumatoid arthritis, unspecified Condition: Stable Disposition: HOME, SELF-CARE Additional Instructions: Take the antibiotics as prescribed for UTI. Begin the prednisone taper to help with your rheumatoid arthritis flare and follow-up with your primary care physician as scheduled. Return if you have worsening symptoms or any other concerns. URINARY TRACT INFECTION: Your evaluation indicates that you have a urinary tract infection. This is due to germs growing in the bladder. This is a common problem. This infection usually responds quickly to antibiotics. Your antibiotic should be taken exactly as prescribed. Drink plenty of fluids -- three to four quarts a day. Occasionally, a bladder anesthetic will be prescribed to help stop the feeling of urgency until the antibiotic has a chance to clear the infection. This may cause your urine to be dark orange. Certain urine infections require a culture. If the doctor obtained a culture, the results will be back in two days. You should call to see if a change in treatment is needed. A repeat urinalysis after you finish treatment is often recommended. The physician will let you know if further testing is required. Call the doctor if you develop fever, chills, flank pain, inability to urinate, or blood in the urine. ANTIBIOTIC THERAPY: You have been given an antibiotic prescription. It's important that you take all the medication, unless instructed otherwise by your physician. Failure to complete the entire course can result in relapse of your condition. Common side effects of antibiotics include nausea, intestinal cramping, or diarrhea. Women may develop vaginal yeast infections, and babies can get yeast (thrush) in the mouth following the use of antibiotics. Contact your physician if you develop significant side effects from this medication. Allergy to this antibiotic can result in hives, wheezing, faintness, or itching. If symptoms of allergy occur, stop the medication and call the doctor. NITROFURANTOIN (MACRODANTIN, MACROBID): You have received a prescription for nitrofurantoin (Macrodantin). This antibiotic is used for urinary tract infections. Women who are or nursing should notify the physician before taking this medicine. If you have ever had a problem caused by this medication in the past, be sure the physician is aware of it. Common side effects of this medicine include nausea, vomiting, or decreased appetite. Notify your physician if these side effects become severe. Immediately stop this medicine and call the physician if you develop cough , shortness of breath, chest pain, weakness, jaundice (yellow color of the skin and whites of the eyes), or a skin rash. URINARY ANESTHETIC AGENT: You have been given a medication (Pyridium) for urinary tract discomfort. This medicine numbs the lining of the bladder and urethra, resulting in less pain, burning, and urgency. You may take it as needed, according to instructions. When the symptoms resolve, you can stop this medication (be sure to continue any other medications the doctor has given you). This medicine turns the urine a dark orange. It may stain underwear. Occasionally, it can cause nausea. Return for evaluation if there are any unexpected effects, such as itching, hives, or shortness of breath. FOLLOW-UP CARE: If you have been referred to a physician for follow-up care, call the physician s office for an appointment as you were instructed or within the next two days. If you experience worsening or a significant change in your symptoms, notify the physician immediately or return to the Emergency Department at any time for re-evaluation. Prescriptions: Nitrofurantoin/Nitrofuran Mac [Macrobid 100 mg Capsule] 1 tab PO BID #10 capsule Prednisone [Deltasone 10 mg Tablet] 10 mg PO ASDIR PRN #21 tablet PRN Reason:
[2017-05-21] MEDS ORDERED: NITROFURANTOIN MONOHYD/M-CRYST 100 MG CAPSULE PO ONE (22:15)
== END 2017-05-21 22:33 | disposition home or self-care (01) ==
LOC: ER 17:04
DX: N30.00 Acute cystitis without hematuria (principal); R60.0 Localized edema; M06.9 Rheumatoid arthritis, unspecified; M79.89 Other specified soft tissue disorders; M25.539 Pain in unspecified wrist; M54.5 Low back pain; R30.0 Dysuria; Z79.899 Other long term (current) drug therapy
CPT/HCPCS: 99283; 36415; 85025; 80053; 81001; 72100; A9270; J8499

== ENCOUNTER 2017-06-24 08:57 | Inpatient (IN) | payer MEDICARE ==
[2017-06-24] MEDS ORDERED: PIPERACILLIN/TAZOBACTAM 4.5 GM VIAL IV ONE (09:02)
[2017-06-24] MEDS ORDERED: VANCOMYCIN HCL INJ 1000 MG VIAL IV ONE (09:02)
--- NOTE | 2017-06-24 09:18 | ER Document Report ---
ED General - General Stated Complaint: DIFFICULTY BREATHING Notes: 82-year-old female with a history of chronic bronchitis presents with shortness of breath for 1 day worse this morning associated with some dry cough. EMS found her hypotensive and hypoxic. She does not take home oxygen and has a history of recurrent UTIs and pneumonia. She says she feels cold but does not denies fever. She was hypotensive and hypoxic for EMS. Review of her meds shows meds for both cardiac disease diabetes as well as lung disease. TRAVEL OUTSIDE OF THE [place] IN LAST 30 DAYS: No - Related Data Allergies/Adverse Reactions: ciprofloxacin [From Cipro] Allergy (Verified 05/21/17 17:09) clindamycin [Clindamycin] Allergy (Verified 05/21/17 17:09) hives/rash teriparatide [From Forteo] Allergy (Verified 05/21/17 17:09) Shortness of Breath tramadol [Tramadol] Adverse Reaction (Verified 05/21/17 17:09) Dizziness hair dye Allergy (Uncoded 05/21/17 17:09) rash Past Medical History - Social History Smoking Status: Never Smoker Family History: Reviewed & Not Pertinent - Past Medical History Cardiac Medical History: Reports: Hx Atrial Fibrillation, Hx Congestive Heart Failure, Hx Hypercholesterolemia, Hx Hypertension Endocrine Medical History: Reports: Hx Diabetes Mellitus Type 2, Hx Hypothyroidism Renal/ Medical History: Denies: Hx Peritoneal Dialysis GI Medical History: Reports: Hx Gastroesophageal Reflux Disease, Hx Irritable Bowel Musculoskeltal Medical History: Reports Hx Arthritis Psychiatric Medical History: Reports: Hx Anxiety, Hx Dementia, Hx Depression Past Surgical History: Reports: Hx Abdominal Surgery - Gastrostomy tube for dysphagia in the past, but has been removed. - Immunizations Hx Diphtheria, Pertussis, Tetanus Vaccination: No Hx Pneumococcal Vaccination: 06/24/13 Review of Systems - Review of Systems Notes: REVIEW OF SYSTEMS GEN: Chills ENT: Denies sore throat, nasal discharge, ear pain EYES: Denies blurry vision, eye pain, discharge CV: Denies chest pain, palpitations, edema RESP: Cough shortness of breath GI: Denies abdominal pain, nausea, vomiting, diarrhea MSK: Denies joint pain/swelling, edema, SKIN: Denies rash, skin lesions LYMPH: Denies swollen glands/lymph nodes NEURO: Denies headache, focal weakness or numbness, dizziness PSYCH: Denies depression, suicidal or homicidal ideation PHYSICAL EXAMINATION General: N acutely short of breath Head: Atraumatic, normocephalic ENT: Mouth normal, oropharynx moist, no exudates or tonsillar enlargement Eyes: Conjunctiva normal, pupils equal, lids normal Neck: No JVD, supple, no guarding CVS: Normal rate, regular rhythm, no murmurs Resp: Tachypnea and hypoxia, bilateral crackles at the bases GI: Nondistended, soft, no tenderness to palpation, no rebound or guarding Ext: No deformities, no edema, normal range of motion in upper and lower ext. Trace pitting edema bilaterally. Back: No CVA or midline TTP Skin: No rash, warm Lymphatic: No lymphadeopathy noted Neuro: Awake, alert. Face symmetric. GCS 15. Physical Exam - Vital signs Vitals: Resp Pulse Ox 29 H 98 06/24/17 09:20 06/24/17 09:20 Course - Re-evaluation Re-evalutation: 06/24/17 09:17 Acutely ill patient 82 years old with hypoxia and hypotension. Her differential includes heart failure, pneumonia or bronchitis, flare of chronic bronchitis and COPD. She is hypotensive and is received about 300 mL's of fluid from EMS. She has crackles, so I am hesitant to give her too much fluid at this point. She will receive EKG chest x-ray sepsis labs and I will give her empiric antibiotics. Will guide fluid resuscitation with ultrasound. Reassessed at 9:15 AM. Patient is 88% on 6 L nasal cannula. Will begin facemask and consider BiPAP. Ultrasound is pending labs are pending. 06/24/17 09:39 Reassessed at 9:35 AM. Reading workup to be sitting up on 8 L to 10 L of nonrebreather satting normally. Blood pressure is in the 120s now heart rate is normal. Bedside ultrasound shows small pericardial effusion without signs of tamponade and irregular heartbeat. History of A. fib. We will still hold fluid until I see her chest x-ray given that she is stabilized. Antibiotic have been ordered. Blood cultures and lactic are pending. 06/24/17 09:57 Patient's EKG shows sinus tach without ischemic change. X-ray shows right middle lobe infiltrate, this is what she has had in the past when she has had pneumonia. Despite this I am still reticent to give her large volumes of fluid is I do not think she would tolerate it would need to be intubated. She is currently stable on facemask. I discussed with her daughter regarding CODE STATUS, her daughter is her decision-maker," as long as she is not going to be a vegetable" he would like her to be full code. Awaiting BMP lactic and the remainder of labs. 06/24/17 10:16 Spoke with Hilda Cortez hospitalist nurse practitioner who accepted admission. Lactic is pending, however if it is elevated I am still probably not going to give 30 mL/kg fluid. I did order another 250 cc and the patient is stable. - Vital Signs Vital signs: Temp Pulse Resp BP Pulse Ox 29 H 98 06/24/17 09:51 06/24/17 09:20 - Laboratory Result Diagrams: 06/24/17 09:11 06/24/17 09:11 Laboratory results interpreted by me: 06/24/17 06/24/17 06/24/17 09:11 09:11 09:11 WBC 16.2 H MCV 100 H MCHC 31.9 L RDW 16.4 H Seg Neutrophils % 79.2 H Monocytes % 2.7 L Absolute Neutrophils 12.8 H Sodium 145.5 H Chloride 114 H Carbon Dioxide 20 L NT-Pro-B Natriuret Pep 788 H - Diagnostic Test Radiology reviewed: Image reviewed, Reports reviewed - EKG Interpretation by Me EKG shows normal: Sinus rhythm Rate: Tachycardia Rhythm: NSR [place]/QRS: LBBB When compared to previous EKG there are: No significant change Procedures - Ultrasound/Bedside Ultrasound/Bedside Time completed: 09:45 Ultrasound: Other - Cardiac ultrasound performed in multiple planes using the left parasternal long short subcostal and apical four-chamber views. Good cardiac activity with occasional premature beats. Small pericardial effusion with no right ventricular or right atrial collapse. Critical Care Note - Critical Care Note Total time excluding time spent on procedures (mins): 35 Discharge - Discharge Clinical Impression: Right middle lobe pneumonia Qualifiers: Pneumonia type: due to unspecified organism Qualified Code(s): J18.1 - Lobar pneumonia, unspecified organism Condition: Fair Disposition: ADMITTED INPATIENT Admitting Provider: Hospitalist Unit Admitted: [facility]
[2017-06-24 09:55] LABS: ABSOLUTE BASOPHILS # (AUTO) 0.1 10^3/uL (0.0-0.2); ABSOLUTE LYMPHOCYTES (AUTO) 2.8 10^3/uL (0.5-4.7); ABSOLUTE MONOCYTES (AUTO) 0.4 10^3/uL (0.1-1.4); ABSOLUTE NEUT (AUTO) 12.8 10^3/uL (1.7-8.2); BASOPHILS % (AUTO) 0.4 % (0-2); EOSINOPHILS % (AUTO) 0.2 % (0-6); HEMOGLOBIN 12.4 g/dL (12.0-15.5); HGB HCT DIFFERENCE -1.8; LYMPHOCYTES % (AUTO) 17.5 % (13-45); MEAN CORPUSCULAR HEMOGLOBIN 31.9 pg (27.0-33.4); MEAN CORPUSCULAR HGB CONC 31.9 g/dL (32.0-36.0); MEAN CORPUSCULAR VOLUME 100 fl (80-97); MONOCYTES % (AUTO) 2.7 % (3-13); RED CELL DISTRIBUTION WIDTH 16.4 % (11.5-14.0); SEGMENTED NEUTROPHILS % (AUTO) 79.2 % (42-78); WHITE BLOOD COUNT 16.2 10^3/uL (4.0-10.5)
[2017-06-24 09:58] LABS: ANION GAP 12 (5-19); BLOOD UREA NITROGEN 19 mg/dL (7-20); CALCIUM 8.8 mg/dL (8.4-10.2); CARBON DIOXIDE 20 mmol/L (22-30); CHLORIDE 114 mmol/L (98-107); CREATININE RESULT 0.67 mg/dL (0.52-1.25); GLUCOSE 97 mg/dL (75-110); POTASSIUM 3.8 mmol/L (3.6-5.0); SODIUM 145.5 mmol/L (137-145)
[2017-06-24 10:03] LABS: TROPONIN I 0.031 ng/mL
[2017-06-24] MEDS ORDERED: NORMAL SALINE 250 ML IV ONE (10:07)
--- NOTE | 2017-06-24 10:27 | RADIOLOGY REPORT (SQ) ---
EXAM DESCRIPTION: CHEST SINGLE VIEW COMPLETED DATE/TIME: 06/24/2017 9:48 am REASON FOR STUDY: sob COMPARISON: Go 04/09/2017. EXAM PARAMETERS: NUMBER OF VIEWS: One view. TECHNIQUE: Single frontal radiographic view of the chest acquired. RADIATION DOSE: NA LIMITATIONS: None. FINDINGS: LUNGS AND PLEURA: Extensive infiltrate in the right lung, particularly in the right base. Left lung relatively clear. Faint perihilar prominence on the left. No large pleural effusion. No pneumothorax. MEDIASTINUM AND HILAR STRUCTURES: No masses. Contour normal. HEART AND VASCULAR STRUCTURES: Heart normal in size. Normal vasculature. BONES: No acute findings. HARDWARE: None in the chest. OTHER: No other significant finding. IMPRESSION: EXTENSIVE INFILTRATE IN THE RIGHT LUNG LIKELY DUE TO PNEUMONIA. TECHNICAL DOCUMENTATION: JOB ID: [id number]
--- NOTE | 2017-06-24 10:41 | EKG REPORT ---
SEVERITY:- ABNORMAL ECG - SINUS TACHYCARDIA INCOMPLETE LEFT BUNDLE BRANCH BLOCK PROBABLE LVH WITH SECONDARY REPOL ABNRM BORDERLINE PROLONGED QT INTERVAL : Confirmed by: Radha Ruiz 24-Jun-2017 10:41:05
[2017-06-24 11:01] LABS: APPEARANCE,URINE CLOUDY; BILIRUBIN,URINE NEGATIVE (NEGATIVE); GLUCOSE, URINE NEGATIVE (NEGATIVE); KETONES,URINE NEGATIVE (NEGATIVE); LEUKOCYTE ESTERASE,URINE LARGE (NEGATIVE); NITRITE,URINE POSITIVE (NEGATIVE); PROTEIN,URINE NEGATIVE (NEGATIVE); URINE SPECIFIC GRAVITY 1.011; UROBILINOGEN,URINE NEGATIVE mg/dL (<2.0)
[2017-06-24] MEDS ORDERED: GUAIFENESIN SYRP 200 MG/10 ML UDC PO PRN (11:42)
[2017-06-24] MEDS ORDERED: DEXTROSE 5%-1/2 NORMAL SALINE 1,000 ML IV PRN (11:42)
[2017-06-24] MEDS ORDERED: ACETAMINOPHEN 325 MG TABLET PO PRN (11:42)
[2017-06-24] MEDS ORDERED: ALBUTEROL SULFATE HFA (90 MCG/PUFF) 200 PUFF/8.5 GM MDI IH PRN (11:42)
[2017-06-24] MEDS ORDERED: LEVALBUTEROL HCL NEB 0.63 MG/3 ML AMPUL NEB PRN (11:42)
[2017-06-24] MEDS ORDERED: PHARMACY COMMUNICATION ORDER MC NR (11:45)
[2017-06-24] MEDS ORDERED: TUBERCULIN,PURIF.PROT.DERIV. 5 TU/0.1 ML TEST 1 ML VIAL ID ONE (13:00)
[2017-06-24] MEDS ORDERED: INFLUENZA ADLT QUAD (36MOS+) 2017-18 VAC 0.5 ML SYR IM PRN (13:24)
[2017-06-24] MEDS: HEPARIN SOD (PORCINE) 5,000 UNIT/ML 1 ML SYRINGE SUBCUT SCH ×2 (14:06→21:37)
--- NOTE | 2017-06-24 15:02 | PDOC H&P ---
History of Present Illness Admission Date/PCP: 06/24/17 11:43 History of Present Illness: JOHANNA NOVAK is a 82 year old female a patient of Dr. GINI BROCK MD this is a 82-year-old Maltese female past medical history includes A. fib, chronic UTIs suspect multidrug resistance, frequent pneumonias, chronic bronchitis, per patient's daughter she has had multiple bouts of sepsis and requiring ICU aggressive therapy. Patient was hypotensive and hypoxic for EMS and reported by family. She has not had a fever. She came in with hypotension blood pressure was 80/50s. She has a history of high blood pressure however she has not been on any blood pressure medication for a while due to hypotension. Patient has some trouble speaking Finnish. Daughter states she can understand better than she can speak but she has been in [facility] 60 years. She also has a history of hypothyroidism, rheumatoid arthritis was on room air, congestive heart failure with normal EF abnormal troponins in the past due to sepsis. Past Medical History Cardiac Medical History: Reports: Atrial Fibrillation, Congestive Heart Failure , Coronary Artery Disease, Hyperlipidema, Hypertension, Other - Past medical history includes enterococcus UTI, rheumatoid arthritis, C. Di Pulmonary Medical History: Reports: Bronchitis, Chronic Obstructive Pulmonary Disease (COPD), Pneumonia, Respiratory Failure EENT Medical History: Reports: Cataracts Endocrine Medical History: Reports: Diabetes Mellitus Type 2, Hypothyroidism Renal/ Medical History: Reports: Chronic Kidney Disease GI Medical History: Reports: Gastroesophageal Reflux Disease Musculoskeltal Medical History: Reports: Arthritis Skin Medical History: Reports: None Psychiatric Medical History: Reports: Dementia, Depression, General Anxiety Disorder Hematology: Reports: Anemia Past Surgical History Past Surgical History: Reports: None Social History Lives with: Family Smoking Status: Never Smoker Frequency of Alcohol Use: None Hx Recreational Drug Use: No Drugs: None Hx Prescription Drug Abuse: No Family History Family History: None, Reviewed & Not Pertinent, COPD Parental Family History Reviewed: Yes Children Family History Reviewed: NA Sibling(s) Family History Reviewed.: NA Medication/Allergy Home Medications: Alprazolam [Xanax 0.25 mg Tablet] 0.25 mg PO HSP PRN 06/24/17 Atorvastatin Calcium [Lipitor 10 mg Tablet] 10 mg PO QHS 06/24/17 Bimatoprost [Lumigan 0.01% Oph Soln 2.5 ml/Bottle] 1 drop OU QPM 06/24/17 Cyanocobalamin (Vitamin B-12) [Vitamin B-12 SR 2000 mcg Tablet] 2,000 mcg PO DAILY 06/24/17 Dexlansoprazole [Dexilant 30 mg Capsule] 30 mg PO DAILY 06/24/17 Donepezil HCl [Aricept 5 mg Tablet] 5 mg PO QHS 06/24/17 Ergocalciferol (Vitamin D2) [Drisdol 50,000 unit (1.25MG) Capsule] 50,000 unit PO MOWE@1000 06/24/17 Fenofibrate 160 mg PO QHS 06/24/17 Ferrous Sulfate [Feosol 325 mg Tablet] 325 mg PO TID 06/24/17 Folic Acid [Folvite 1 mg Tablet] 1 mg PO DAILY 06/24/17 Hydroxychloroquine Sulfate [Plaquenil 200 mg Tablet] 100 mg PO SUTUTHSA@1000 09/09 Hydroxychloroquine Sulfate [Plaquenil 200 mg Tablet] 200 mg PO MOWEFR@1000,2200 PRN 06/24/17 Levothyroxine Sodium [Synthroid] 50 mcg PO DAILY 06/24/17 Levothyroxine Sodium [Synthroid] 200 mcg PO DAILY 06/24/17 Metformin HCl [Glucophage 500 mg Tablet] 500 mg PO BIDBS 06/24/17 Oxycodone HCl [Oxy-Ir 5 mg Tablet] 5 mg PO Q6HP PRN 06/24/17 Prednisone [Deltasone 5 mg Tablet] 5 mg PO BID 06/24/17 Propafenone HCl 300 mg PO Q8 06/24/17 Sertraline HCl [Zoloft 50 mg Tablet] 50 mg PO DAILY 06/24/17 Allergies/Adverse Reactions: ciprofloxacin [From Cipro] Allergy (Verified 06/24/17 10:23) Hives clindamycin [Clindamycin] Allergy (Verified 06/24/17 10:23) hives/rash doxycycline Allergy (Verified 06/24/17 10:23) Hives teriparatide [From Forteo] Allergy (Verified 06/24/17 10:23) Shortness of Breath tramadol [Tramadol] Adverse Reaction (Verified 06/24/17 10:23) Dizziness hair dye Allergy (Uncoded 06/24/17 10:23) rash Review of Systems ROS unobtainable: Due to mental status - Patient's daughter states she has dementia, Other - Patient's daughter states she has dementia Constitutional: PRESENT: as per HPI Eyes: PRESENT: as per HPI Ears: PRESENT: as per HPI Nose, Mouth, and Throat: PRESENT: as per HPI Cardiovascular: ABSENT: chest pain, dyspnea on exertion, edema, orthropnea, palpitations Respiratory: PRESENT: cough, dyspnea Gastrointestinal: PRESENT: heartburn. ABSENT: abdominal pain, constipation, diarrhea, hematemesis, hematochezia, nausea, vomiting Genitourinary: PRESENT: as per HPI Musculoskeletal: PRESENT: muscle weakness, other Integumentary: PRESENT: as per HPI Neurological: PRESENT: as per HPI - Patient denies any complaints of chest pain , increased shortness of breath, nausea vomiting diarrhea or constipation, denies syncope, denies falling, she does have some generalized muscle weakness, confusion, memory loss, weakness Psychiatric: PRESENT: as per HPI, anxiety Endocrine: ABSENT: cold intolerance, heat intolerance, polydipsia, polyuria Hematologic/Lymphatic: ABSENT: easy bleeding, easy bruising Physical Exam Vital Signs: Temp Pulse Resp BP Pulse Ox 98.5 F 41 L 20 99/56 L 100 06/24/17 12:44 06/24/17 12:44 06/24/17 12:44 06/24/17 12:44 06/24/17 12:44 General appearance: PRESENT: no acute distress, well-developed, well-nourished, other - Appears ill and frail Head exam: PRESENT: atraumatic, normocephalic Eye exam: PRESENT: conjunctiva pink, EOMI, PERRLA. ABSENT: scleral icterus Ear exam: PRESENT: normal external ear exam Mouth exam: PRESENT: dry mucosa, neck supple, tongue midline Neck exam: ABSENT: carotid bruit, JVD, lymphadenopathy, thyromegaly Respiratory exam: PRESENT: clear to auscultation ana maria, decreased breath sounds, tachypnea, unlabored. ABSENT: rales, rhonchi, wheezes Cardiovascular exam: PRESENT: irregular rhythm, RRR, tachycardia. ABSENT: diastolic murmur, rubs, systolic murmur Pulses: PRESENT: normal dorsalis pedis pul Vascular exam: PRESENT: normal capillary refill GI/Abdominal exam: PRESENT: normal bowel sounds, soft. ABSENT: distended, guarding, mass, organolmegaly, rebound, tenderness Rectal exam: PRESENT: deferred Extremities exam: PRESENT: full ROM. ABSENT: calf tenderness, clubbing, pedal edema Musculoskeletal exam: ABSENT: ambulatory, deformity, dislocation, full ROM, normal inspection, tenderness, other Neurological exam: PRESENT: alert, awake, oriented to person, oriented to place , oriented to time, oriented to situation, CN II-XII grossly intact. ABSENT: motor sensory deficit Psychiatric exam: PRESENT: anxious, appropriate affect, normal mood. ABSENT: homicidal ideation, suicidal ideation Skin exam: PRESENT: dry, intact, warm. ABSENT: cyanosis, rash Results Laboratory Results: 06/24/17 14:12 Lactic Acid 2.3 H Impressions: Chest X-Ray 06/24/17 09:02 IMPRESSION: EXTENSIVE INFILTRATE IN THE RIGHT LUNG LIKELY DUE TO PNEUMONIA. Assessment & Plan - Diagnosis (1) Right middle lobe pneumonia Qualifiers: Pneumonia type: due to unspecified organism Qualified Code(s): J18.1 - Lobar pneumonia, unspecified organism Is this a current diagnosis for this admission?: Yes Plan: Patient was started on vancomycin and Zosyn. We will continue those for pharmacy to dose due to her acute on chronic renal failure. Blood cultures were ordered and obtained. Continue to monitor and follow. Patient has had multiple rounds of antibiotics. Would consider palliative care consult in the near future for goals of care discussion. On admission patient had a WBC of 16.2 sodium was 145.5 chloride is 114 lactic acid was 3.2 but it came down to 2.3 we will repeat that in the morning will send culture for urine not done in the ER. (2) MELANY (acute kidney injury) Is this a current diagnosis for this admission?: Yes Plan: Gentle IV hydration will give D5 half-normal saline due to elevated sodium level repeat chemistry in the a.m. (3) Congestive heart failure Qualifiers: Congestive heart failure type: diastolic Congestive heart failure chronicity: acute on chronic Qualified Code(s): I50.33 - Acute on chronic diastolic (congestive) heart failure Is this a current diagnosis for this admission?: Yes Plan: Careful IV hydration in the setting of acute sepsis in the setting of chronic acute on chronic diastolic dysfunction continue to monitor and evaluate need for Lasix. (4) Dementia Qualifiers: Dementia type: vascular dementia Is this a current diagnosis for this admission?: Yes Plan: Patient's daughter interprets for her she speaks very good Finnish and seems to be very knowledgeable about her medical condition. She does have healthcare power of autocad operator and states she will be with her most all the time (5) Sepsis Qualifiers: Sepsis type: sepsis due to unspecified organism Qualified Code(s): A41.9 - Sepsis, unspecified organism Plan: Continue IV antibiotics 2. Monitor labs and cultures. Repeat lactic acid level in a.m. (6) Hypothyroidism Qualifiers: Hypothyroidism type: acquired Qualified Code(s): E03.9 - Hypothyroidism, unspecified Is this a current diagnosis for this admission?: Yes Plan: Monitor continue thyroid medication (7) Urinary tract infection Qualifiers: Urinary tract infection type: acute cystitis Hematuria presence: without hematuria Qualified Code(s): N30.00 - Acute cystitis without hematuria Is this a current diagnosis for this admission?: Yes Plan: Careful IV hydration, and continue IV antibiotics - Inpatient Certification Based on my medical assessment, after consideration of the patient's comorbidities, presenting symptoms, or acuity I expect that the services needed warrant INPATIENT care.: Yes I certify that my determination is in accordance with my understanding of Medicare's requirements for reasonable and necessary INPATIENT services [42 CFR 412.3e].: Yes Medical Necessity: Need Close Monitoring Due to Risk of Patient Decompensation, Need For IV Fluids, Need For Continuous Telemetry Monitoring, Need for Nebulizer Therapy and Monitoring of Response, Need for IV Antibiotics, Risk of Complication if Not Cared For in Hospital Post Hospital Care: D/C Terrazzo Tile Setter Documentation, D/C or Transfer Summary, Other
[2017-06-24] MEDS ORDERED: INSULIN LISPRO 100 UNIT/ML 3 ML VIAL SUBCUT PRN (15:22)
[2017-06-24] MEDS ORDERED: DEXTROSE 50%-WATER 25 GM/50 ML DISP.SYRIN IV PRN ×2 (15:22)
[2017-06-24] MEDS ORDERED: GLUCAGON,HUMAN RECOMB 1 MG INJ IM PRN (15:22)
[2017-06-24] MEDS ORDERED: DEXTROSE 40% GEL 15 GM TUBE PO PRN ×2 (15:22)
[2017-06-24] MEDS ORDERED: CYANOCOBALAMIN PO SCH (15:30)
[2017-06-24] MEDS ORDERED: [UNRECOGNIZED DRUG - OTHER] PO SCH (15:30)
[2017-06-24] MEDS ORDERED: VANCOMYCIN HCL 0 MG in DEXTROSE 5%-WATER 250 ML IV NR (15:45)
[2017-06-24] MEDS ORDERED: SERTRALINE HCL 50 MG TABLET PO ONE (16:45)
[2017-06-24] MEDS: OXYCODONE HCL IR 5 MG TABLET PO PRN ×2 (16:53→22:35)
[2017-06-24] MEDS: LANSOPRAZOLE 30 MG TAB.RAP.DR PO SCH (16:53)
[2017-06-24] MEDS ORDERED: PREDNISONE 5 MG TABLET PO SCH (18:00)
[2017-06-24] MEDS: BIMATOPROST 0.01% OPH SOLN 2.5 ML/BOTTLE OU SCH (18:39)
[2017-06-24] MEDS: ALPRAZOLAM 0.25 MG TABLET PO PRN (18:39)
[2017-06-24] MEDS: PIPERACILLIN SODIUM/TAZOBACTAM 3.375 GM in NORMAL SALINE 100 ML IV SCH (18:40)
[2017-06-24] MEDS: FENOFIBRATE NANOCRYSTALLIZED 145 MG TABLET PO SCH (21:34)
[2017-06-24] MEDS: DONEPEZIL HCL 5 MG TABLET PO SCH (21:34)
[2017-06-24] MEDS: ATORVASTATIN CALCIUM 10 MG TABLET PO SCH (21:34)
[2017-06-24] MEDS: GUAIFENESIN 600 MG TABLET.SA PO SCH (21:35)
[2017-06-24] MEDS: PROPAFENONE HCL 150 MG TABLET PO SCH (21:35)
[2017-06-24] MEDS: HYDROXYCHLOROQUINE SULFATE 200 MG TABLET PO PRN (21:41)
[2017-06-24] MEDS ORDERED: PROPAFENONE HCL 300 MG PO SCH (22:00)
[2017-06-24] MEDS ORDERED: (PENDING PHARMACY ID) (Fenofibrate [Fenofibrate] 160 MG) PO SCH (22:00)
[2017-06-25] MEDS: PIPERACILLIN SODIUM/TAZOBACTAM 3.375 GM in NORMAL SALINE 100 ML IV SCH ×2 (01:02→06:32)
[2017-06-25] MEDS: PROPAFENONE HCL 150 MG TABLET PO SCH ×3 (06:32→22:56)
[2017-06-25] MEDS: LANSOPRAZOLE 30 MG TAB.RAP.DR PO SCH ×2 (06:32→17:36)
[2017-06-25] MEDS: HEPARIN SOD (PORCINE) 5,000 UNIT/ML 1 ML SYRINGE SUBCUT SCH ×3 (06:33→22:54)
[2017-06-25 06:37] LABS: ABSOLUTE EOSINOPHILS # (AUTO) 0.1 10^3/uL (0.0-0.6); ABSOLUTE LYMPHOCYTES (AUTO) 1.9 10^3/uL (0.5-4.7); ABSOLUTE MONOCYTES (AUTO) 0.8 10^3/uL (0.1-1.4); ABSOLUTE NEUT (AUTO) 12.5 10^3/uL (1.7-8.2); BASOPHILS % (AUTO) 0.2 % (0-2); EOSINOPHILS % (AUTO) 0.4 % (0-6); HGB HCT DIFFERENCE -0.7; LYMPHOCYTES % (AUTO) 12.7 % (13-45); MEAN CORPUSCULAR HEMOGLOBIN 31.6 pg (27.0-33.4); MEAN CORPUSCULAR HGB CONC 32.5 g/dL (32.0-36.0); MEAN CORPUSCULAR VOLUME 97 fl (80-97); MONOCYTES % (AUTO) 5.1 % (3-13); RED BLOOD COUNT 3.19 10^6/uL (3.72-5.28); RED CELL DISTRIBUTION WIDTH 15.9 % (11.5-14.0); SEGMENTED NEUTROPHILS % (AUTO) 81.6 % (42-78); WHITE BLOOD COUNT 15.3 10^3/uL (4.0-10.5)
[2017-06-25 06:40] LABS: HEMOGLOBIN 10.1 g/dL (12.0-15.5)
[2017-06-25 06:43] LABS: ANION GAP 11 (5-19); BLOOD UREA NITROGEN 17 mg/dL (7-20); CALCIUM 7.7 mg/dL (8.4-10.2); CARBON DIOXIDE 19 mmol/L (22-30); CHLORIDE 113 mmol/L (98-107); CREATINE KINASE 42 U/L (30-135); CREATININE RESULT 0.72 mg/dL (0.52-1.25); GLUCOSE 89 mg/dL (75-110); POTASSIUM 3.3 mmol/L (3.6-5.0); SODIUM 143.4 mmol/L (137-145)
[2017-06-25] MEDS: VANCOMYCIN HCL 1,500 MG in DEXTROSE 5%-WATER 250 ML IV SCH (09:34)
[2017-06-25] MEDS: PREDNISONE 5 MG TABLET PO SCH ×2 (09:35→17:36)
[2017-06-25] MEDS: LEVOTHYROXINE SODIUM 0.1 MG TABLET PO SCH (09:35)
[2017-06-25] MEDS: CYANOCOBALAMIN (VITAMIN B-12) 1,000 MCG TABLET PO SCH (09:36)
[2017-06-25] MEDS: HYDROXYCHLOROQUINE SULFATE 200 MG TABLET PO SCH (09:36)
[2017-06-25] MEDS: SERTRALINE HCL 50 MG TABLET PO SCH (09:37)
[2017-06-25] MEDS: FOLIC ACID 1 MG TABLET PO SCH (09:37)
[2017-06-25] MEDS: GUAIFENESIN 600 MG TABLET.SA PO SCH ×2 (09:37→22:54)
[2017-06-25] MEDS ORDERED: (PENDING PHARMACY ID) (Dexlansoprazole [Dexilant 30 Mg Capsule] 30 MG) PO SCH (10:00)
[2017-06-25] MEDS: PIPERACILLIN SODIUM/TAZOBACTAM 2.25 GM in NORMAL SALINE 50 ML IV SCH ×2 (11:55→17:36)
[2017-06-25] MEDS ORDERED: POTASSIUM CHLORIDE 20 MEQ/15 ML UDCUP PO ONE (11:59)
[2017-06-25] MEDS ORDERED: FUROSEMIDE INJ/PF 20 MG/2 ML SDV IV ONE (12:07)
--- NOTE | 2017-06-25 16:35 | PDOC PROGRESS REPORT ---
Subjective Progress Note for:: 06/25/17 Subjective:: This is a 82-year-old female admitted with pneumonia and appears to have another UTI but she probably is colonized. She was hypotensive and hypoxic denies fever tensive which is improved blood pressure 114/60. She responded well to IV antibiotics. Cultures were positive for gram-negative rods colonized in her urine Physical Exam Vital Signs: Temp Pulse Resp BP Pulse Ox 98.6 F 85 16 111/58 L 98 06/25/17 08:51 06/25/17 14:36 06/25/17 12:00 06/25/17 14:36 06/25/17 14:36 Intake & Output 06/24/17 06/25/17 06/26/17 06:59 06:59 06:59 Intake Total 827 Balance 827 Weight 67.5 kg General appearance: PRESENT: mild distress, well-developed, well-nourished Head exam: PRESENT: atraumatic, normocephalic Eye exam: PRESENT: conjunctiva pink, EOMI, PERRLA. ABSENT: scleral icterus Ear exam: PRESENT: normal external ear exam Mouth exam: PRESENT: moist, tongue midline Neck exam: ABSENT: carotid bruit, JVD, lymphadenopathy, thyromegaly Respiratory exam: PRESENT: clear to auscultation ana maria. ABSENT: rales, rhonchi, wheezes Cardiovascular exam: PRESENT: RRR. ABSENT: diastolic murmur, rubs, systolic murmur Pulses: PRESENT: normal dorsalis pedis pul Vascular exam: PRESENT: normal capillary refill GI/Abdominal exam: PRESENT: normal bowel sounds, soft. ABSENT: distended, guarding, mass, organolmegaly, rebound, tenderness Rectal exam: PRESENT: deferred Extremities exam: PRESENT: full ROM. ABSENT: calf tenderness, clubbing, pedal edema Neurological exam: PRESENT: alert, awake, oriented to person, oriented to place , oriented to time, oriented to situation, CN II-XII grossly intact. ABSENT: motor sensory deficit Psychiatric exam: PRESENT: appropriate affect, normal mood. ABSENT: homicidal ideation, suicidal ideation Skin exam: PRESENT: dry, intact, warm. ABSENT: cyanosis, rash Results Laboratory Results: 06/25/17 06:18 06/25/17 06:18 11/02/17 11/02/17 11/02/17 06:18 06:18 06:18 WBC 15.3 H RBC 3.19 L Hgb 10.1 L D Hct 31.0 L MCV 97 MCH 31.6 MCHC 32.5 RDW 15.9 H Plt Count 301 Seg Neutrophils % 81.6 H Lymphocytes % 12.7 L Monocytes % 5.1 Eosinophils % 0.4 Basophils % 0.2 Absolute Neutrophils 12.5 H Absolute Lymphocytes 1.9 Absolute Monocytes 0.8 Absolute Eosinophils 0.1 Absolute Basophils 0.0 Sodium 143.4 Potassium 3.3 L Chloride 113 H Carbon Dioxide 19 L Anion Gap 11 BUN 17 Creatinine 0.72 Est GFR ( Amer) > 60 Est GFR (Non-Af Amer) > 60 Glucose 89 Lactic Acid 0.9 Calcium 7.7 L 06/25/17 11 06:18 06:18 Creatine Kinase 42 NT-Pro-B Natriuret Pep 816 H Impressions: Chest X-Ray 06/24/17 09:02 IMPRESSION: EXTENSIVE INFILTRATE IN THE RIGHT LUNG LIKELY DUE TO PNEUMONIA. Assessment & Plan - Diagnosis (1) Right middle lobe pneumonia Qualifiers: Pneumonia type: due to unspecified organism Qualified Code(s): J18.1 - Lobar pneumonia, unspecified organism Is this a current diagnosis for this admission?: Yes Plan: Patient was started on vancomycin and Zosyn. We will continue those for pharmacy to dose due to her acute on chronic renal failure. Blood cultures were ordered and obtained. Continue to monitor and follow. Patient has had multiple rounds of antibiotics. Would consider palliative care consult in the near future for goals of care discussion. On admission patient had a WBC of 16.2 sodium was 145.5 chloride is 114 lactic acid was 3.2 but it came down to 2.3 we will repeat that in the morning will send culture for urine not done in the ER. Patient looks much better today much improved than yesterday (2) MELANY (acute kidney injury) Is this a current diagnosis for this admission?: Yes Plan: Gentle IV hydration will give D5 half-normal saline due to elevated sodium level repeat chemistry in the a.m. (3) Congestive heart failure Qualifiers: Congestive heart failure type: diastolic Congestive heart failure chronicity: acute on chronic Qualified Code(s): I50.33 - Acute on chronic diastolic (congestive) heart failure Is this a current diagnosis for this admission?: Yes Plan: Careful IV hydration in the setting of acute sepsis in the setting of chronic acute on chronic diastolic dysfunction continue to monitor and evaluate need for Lasix. Patient did get 20 mg of IV Lasix today also had replace her potassium (4) Dementia Qualifiers: Dementia type: vascular dementia Is this a current diagnosis for this admission?: Yes Plan: Patient's daughter interprets for her she speaks very good Persian and seems to be very knowledgeable about her medical condition. She does have healthcare power of debt and budget counselor and states she will be with her most all the time (5) Sepsis Qualifiers: Sepsis type: sepsis due to unspecified organism Qualified Code(s): A41.9 - Sepsis, unspecified organism Plan: Continue IV antibiotics 2. Monitor labs and cultures. Repeat lactic acid level in a.m. (6) Hypothyroidism Qualifiers: Hypothyroidism type: acquired Qualified Code(s): E03.9 - Hypothyroidism, unspecified Is this a current diagnosis for this admission?: Yes (7) Urinary tract infection Qualifiers: Urinary tract infection type: site unspecified Hematuria presence: without hematuria Qualified Code(s): N39.0 - Urinary tract infection, site not specified Is this a current diagnosis for this admission?: Yes Plan: Careful IV hydration, and continue IV antibiotics patient had gram-negative rods but appears to be colonized - Inpatient Certification Based on my medical assessment, after consideration of the patient's comorbidities, presenting symptoms, or acuity I expect that the services needed warrant INPATIENT care.: Yes I certify that my determination is in accordance with my understanding of Medicare's requirements for reasonable and necessary INPATIENT services [42 CFR 412.3e].: Yes Medical Necessity: Need For IV Fluids, Need For Continuous Telemetry Monitoring , Need for IV Antibiotics, Risk of Complication if Not Cared For in Hospital Post Hospital Care: D/C Veneer Press Operator Documentation
[2017-06-25] MEDS: OXYCODONE HCL IR 5 MG TABLET PO PRN (17:35)
[2017-06-25] MEDS: BIMATOPROST 0.01% OPH SOLN 2.5 ML/BOTTLE OU SCH (17:37)
[2017-06-25] MEDS: FENOFIBRATE NANOCRYSTALLIZED 145 MG TABLET PO SCH (22:54)
[2017-06-25] MEDS: ALPRAZOLAM 0.25 MG TABLET PO PRN (22:54)
[2017-06-25] MEDS: ATORVASTATIN CALCIUM 10 MG TABLET PO SCH (22:54)
[2017-06-25] MEDS: DONEPEZIL HCL 5 MG TABLET PO SCH (22:54)
[2017-06-26] MEDS: PIPERACILLIN SODIUM/TAZOBACTAM 2.25 GM in NORMAL SALINE 50 ML IV SCH ×5 (03:30→23:39)
[2017-06-26 05:33] LABS: ABSOLUTE LYMPHOCYTES (AUTO) 1.1 10^3/uL (0.5-4.7); ABSOLUTE MONOCYTES (AUTO) 0.7 10^3/uL (0.1-1.4); ABSOLUTE NEUT (AUTO) 10.5 10^3/uL (1.7-8.2); BASOPHILS % (AUTO) 0.2 % (0-2); EOSINOPHILS % (AUTO) 0.1 % (0-6); HEMATOCRIT 28.7 % (36.0-47.0); HEMOGLOBIN 9.6 g/dL (12.0-15.5); HGB HCT DIFFERENCE 0.1; LYMPHOCYTES % (AUTO) 8.6 % (13-45); MEAN CORPUSCULAR HEMOGLOBIN 32.4 pg (27.0-33.4); MEAN CORPUSCULAR HGB CONC 33.4 g/dL (32.0-36.0); MEAN CORPUSCULAR VOLUME 97 fl (80-97); MONOCYTES % (AUTO) 5.9 % (3-13); RED BLOOD COUNT 2.96 10^6/uL (3.72-5.28); RED CELL DISTRIBUTION WIDTH 16.2 % (11.5-14.0); SEGMENTED NEUTROPHILS % (AUTO) 85.2 % (42-78); WHITE BLOOD COUNT 12.3 10^3/uL (4.0-10.5)
[2017-06-26 05:58] LABS: ANION GAP 11 (5-19); BLOOD UREA NITROGEN 13 mg/dL (7-20); CALCIUM 7.7 mg/dL (8.4-10.2); CARBON DIOXIDE 21 mmol/L (22-30); CHLORIDE 111 mmol/L (98-107); CREATININE RESULT 0.71 mg/dL (0.52-1.25); GLUCOSE 98 mg/dL (75-110); POTASSIUM 3.6 mmol/L (3.6-5.0); SODIUM 143.1 mmol/L (137-145)
[2017-06-26] MEDS: OXYCODONE HCL IR 5 MG TABLET PO PRN ×2 (06:46→22:17)
[2017-06-26] MEDS: PROPAFENONE HCL 150 MG TABLET PO SCH ×3 (06:47→23:36)
[2017-06-26] MEDS: LANSOPRAZOLE 30 MG TAB.RAP.DR PO SCH ×2 (06:47→17:28)
[2017-06-26] MEDS: HEPARIN SOD (PORCINE) 5,000 UNIT/ML 1 ML SYRINGE SUBCUT SCH ×3 (06:47→22:18)
--- NOTE | 2017-06-26 09:23 | PDOC PROGRESS REPORT ---
Physical Exam Vital Signs: Temp Pulse Resp BP Pulse Ox 97.6 F 80 18 159/66 H 96 06/26/17 07:37 06/26/17 07:37 06/26/17 07:37 06/26/17 07:37 06/26/17 07:37 Intake & Output 06/25/17 06/26/17 06/27/17 06:59 06:59 06:59 Intake Total 827 1777 Balance 827 1777 Weight 67.5 kg 67.7 kg Results Laboratory Results: 06/26/17 05:00 06/26/17 05:00 06/26/17 06/26/17 06/26/17 05:00 05:00 05:00 WBC 12.3 H RBC 2.96 L Hgb 9.6 L Hct 28.7 L MCV 97 MCH 32.4 MCHC 33.4 RDW 16.2 H Plt Count 271 Seg Neutrophils % 85.2 H Lymphocytes % 8.6 L Monocytes % 5.9 Eosinophils % 0.1 Basophils % 0.2 Absolute Neutrophils 10.5 H Absolute Lymphocytes 1.1 Absolute Monocytes 0.7 Absolute Eosinophils 0.0 Absolute Basophils 0.0 Sodium 143.1 Potassium 3.6 Chloride 111 H Carbon Dioxide 21 L Anion Gap 11 BUN 13 Creatinine 0.71 Est GFR ( Amer) > 60 Est GFR (Non-Af Amer) > 60 Glucose 98 Lactic Acid 0.9 Calcium 7.7 L 06/25/17 06/25/17 06:18 06:18 Creatine Kinase 42 NT-Pro-B Natriuret Pep 816 H Impressions: Chest X-Ray 06/24/17 09:02 IMPRESSION: EXTENSIVE INFILTRATE IN THE RIGHT LUNG LIKELY DUE TO PNEUMONIA. Assessment & Plan - Diagnosis (1) Right middle lobe pneumonia Qualifiers: Pneumonia type: due to unspecified organism Qualified Code(s): J18.1 - Lobar pneumonia, unspecified organism Is this a current diagnosis for this admission?: Yes Plan: Patient was started on vancomycin and Zosyn. We will continue those for pharmacy to dose due to her acute on chronic renal failure. Blood cultures were ordered and obtained. Continue to monitor and follow. Patient has had multiple rounds of antibiotics. Would consider palliative care consult in the near future for goals of care discussion. On admission patient had a WBC of 16.2 sodium was 145.5 chloride is 114 lactic acid was 3.2 but it came down to 2.3 we will repeat that in the morning will send culture for urine not done in the ER. Patient continued looks much better today much improved than yesterday. Daughter states she knows she is feeling better because she is becoming irritable again. (2) MELANY (acute kidney injury) Is this a current diagnosis for this admission?: Yes (3) Congestive heart failure Qualifiers: Congestive heart failure type: diastolic Congestive heart failure chronicity: acute on chronic Qualified Code(s): I50.33 - Acute on chronic diastolic (congestive) heart failure Is this a current diagnosis for this admission?: Yes (4) Dementia Qualifiers: Dementia type: vascular dementia Is this a current diagnosis for this admission?: Yes (5) Sepsis Qualifiers: Sepsis type: sepsis due to unspecified organism Qualified Code(s): A41.9 - Sepsis, unspecified organism (6) Hypothyroidism Qualifiers: Hypothyroidism type: acquired Qualified Code(s): E03.9 - Hypothyroidism, unspecified Is this a current diagnosis for this admission?: Yes (7) Urinary tract infection Qualifiers: Urinary tract infection type: site unspecified Hematuria presence: without hematuria Qualified Code(s): N39.0 - Urinary tract infection, site not specified Is this a current diagnosis for this admission?: Yes
[2017-06-26] MEDS: CYANOCOBALAMIN (VITAMIN B-12) 1,000 MCG TABLET PO SCH (10:06)
[2017-06-26] MEDS: FOLIC ACID 1 MG TABLET PO SCH (10:07)
[2017-06-26] MEDS: LEVOTHYROXINE SODIUM 0.1 MG TABLET PO SCH (10:07)
[2017-06-26] MEDS: PREDNISONE 5 MG TABLET PO SCH ×2 (10:07→17:28)
[2017-06-26] MEDS: SERTRALINE HCL 50 MG TABLET PO SCH (10:08)
[2017-06-26] MEDS: GUAIFENESIN 600 MG TABLET.SA PO SCH ×2 (10:08→22:17)
[2017-06-26] MEDS: HYDROXYCHLOROQUINE SULFATE 200 MG TABLET PO PRN ×2 (10:09→23:39)
[2017-06-26] MEDS: VANCOMYCIN HCL 1,500 MG in DEXTROSE 5%-WATER 250 ML IV SCH (10:09)
[2017-06-26] MEDS: BIMATOPROST 0.01% OPH SOLN 2.5 ML/BOTTLE OU SCH (17:31)
[2017-06-26] MEDS: ALPRAZOLAM 0.25 MG TABLET PO PRN (22:16)
[2017-06-26] MEDS: ATORVASTATIN CALCIUM 10 MG TABLET PO SCH (22:16)
[2017-06-26] MEDS: DONEPEZIL HCL 5 MG TABLET PO SCH (22:16)
[2017-06-26] MEDS: FENOFIBRATE NANOCRYSTALLIZED 145 MG TABLET PO SCH (22:16)
[2017-06-26] MEDS ORDERED: HYDROXYCHLOROQUINE SULFATE 200 MG TABLET ONE (23:19)
[2017-06-27] MEDS: PIPERACILLIN SODIUM/TAZOBACTAM 2.25 GM in NORMAL SALINE 50 ML IV SCH ×3 (06:29→17:33)
[2017-06-27] MEDS: PROPAFENONE HCL 150 MG TABLET PO SCH ×3 (06:29→22:35)
[2017-06-27] MEDS: LANSOPRAZOLE 30 MG TAB.RAP.DR PO SCH ×2 (06:29→17:31)
[2017-06-27] MEDS: HEPARIN SOD (PORCINE) 5,000 UNIT/ML 1 ML SYRINGE SUBCUT SCH ×3 (06:29→22:35)
[2017-06-27 06:56] LABS: ABSOLUTE LYMPHOCYTES (AUTO) 1.2 10^3/uL (0.5-4.7); ABSOLUTE MONOCYTES (AUTO) 0.7 10^3/uL (0.1-1.4); ABSOLUTE NEUT (AUTO) 9.2 10^3/uL (1.7-8.2); BASOPHILS % (AUTO) 0.3 % (0-2); HEMATOCRIT 28.5 % (36.0-47.0); HEMOGLOBIN 9.6 g/dL (12.0-15.5); HGB HCT DIFFERENCE 0.3; LYMPHOCYTES % (AUTO) 10.7 % (13-45); MEAN CORPUSCULAR HEMOGLOBIN 32.4 pg (27.0-33.4); MEAN CORPUSCULAR HGB CONC 33.6 g/dL (32.0-36.0); MEAN CORPUSCULAR VOLUME 96 fl (80-97); MONOCYTES % (AUTO) 5.9 % (3-13); RED BLOOD COUNT 2.96 10^6/uL (3.72-5.28); RED CELL DISTRIBUTION WIDTH 15.8 % (11.5-14.0); SEGMENTED NEUTROPHILS % (AUTO) 83.1 % (42-78); WHITE BLOOD COUNT 11.1 10^3/uL (4.0-10.5)
[2017-06-27 07:34] LABS: ANION GAP 12 (5-19); BLOOD UREA NITROGEN 12 mg/dL (7-20); CALCIUM 7.2 mg/dL (8.4-10.2); CARBON DIOXIDE 20 mmol/L (22-30); CHLORIDE 113 mmol/L (98-107); CREATININE RESULT 0.75 mg/dL (0.52-1.25); GLUCOSE 86 mg/dL (75-110); POTASSIUM 3.3 mmol/L (3.6-5.0); SODIUM 145.1 mmol/L (137-145)
[2017-06-27] MEDS: SERTRALINE HCL 50 MG TABLET PO SCH (09:01)
[2017-06-27] MEDS: PREDNISONE 5 MG TABLET PO SCH ×2 (09:01→17:31)
[2017-06-27] MEDS: HYDROXYCHLOROQUINE SULFATE 200 MG TABLET PO SCH (09:01)
[2017-06-27] MEDS: LEVOTHYROXINE SODIUM 0.1 MG TABLET PO SCH (09:01)
[2017-06-27] MEDS: CYANOCOBALAMIN (VITAMIN B-12) 1,000 MCG TABLET PO SCH (09:01)
[2017-06-27] MEDS: FOLIC ACID 1 MG TABLET PO SCH (09:02)
[2017-06-27] MEDS: GUAIFENESIN 600 MG TABLET.SA PO SCH ×2 (09:02→22:35)
[2017-06-27] MEDS ORDERED: POTASSIUM CHLORIDE 20 MEQ/15 ML UDCUP PO ONE (12:00)
[2017-06-27] MEDS ORDERED: FUROSEMIDE INJ/PF 20 MG/2 ML SDV IV ONE (12:00)
[2017-06-27] MEDS ORDERED: CALCIUM CARBONATE 250 MG/VITAMIN D3 125 UNIT TABLET PO ONE (12:00)
[2017-06-27] MEDS: POTASSI CL 20 MEQ/50 ML RIDER 20 MEQ/50 ML RTUPB IV SCH ×2 (14:10→14:59)
[2017-06-27] MEDS: OXYCODONE HCL IR 5 MG TABLET PO PRN (14:58)
--- NOTE | 2017-06-27 16:44 | PDOC PROGRESS REPORT ---
Subjective Progress Note for:: 06/27/17 Subjective:: This is a 82-year-old female admitted with pneumonia and appears to have another UTI but she probably is colonized. She was hypotensive and hypoxic denies fever tensive which is improved blood pressure 114/60. She responded well to IV antibiotics. Cultures were positive for gram-negative rods colonized in her urine Has some rales and SOB will add more Lasix iv today and replace K+ Physical Exam Vital Signs: Temp Pulse Resp BP Pulse Ox 98.2 F 68 18 150/73 H 100 06/27/17 03:48 06/27/17 03:48 06/27/17 03:48 06/27/17 03:48 06/27/17 03:48 Intake & Output 06/26/17 06/27/17 06/28/17 06:59 06:59 05:59 Intake Total 1777 400 Balance 1777 400 Weight 67.7 kg 66 kg General appearance: PRESENT: no acute distress, well-developed, well-nourished Head exam: PRESENT: atraumatic, normocephalic Eye exam: PRESENT: conjunctiva pink, EOMI, PERRLA. ABSENT: scleral icterus Ear exam: PRESENT: normal external ear exam Mouth exam: PRESENT: moist, tongue midline Neck exam: ABSENT: carotid bruit, JVD, lymphadenopathy, thyromegaly Respiratory exam: PRESENT: accessory muscle use, crackles, unlabored. ABSENT: rales, rhonchi, wheezes Cardiovascular exam: PRESENT: RRR. ABSENT: diastolic murmur, rubs, systolic murmur Pulses: PRESENT: normal dorsalis pedis pul Vascular exam: PRESENT: normal capillary refill GI/Abdominal exam: PRESENT: normal bowel sounds, soft. ABSENT: distended, guarding, mass, organolmegaly, rebound, tenderness Rectal exam: PRESENT: deferred Extremities exam: PRESENT: full ROM. ABSENT: calf tenderness, clubbing, pedal edema Neurological exam: PRESENT: alert, awake, oriented to person, oriented to place , oriented to time, oriented to situation, CN II-XII grossly intact. ABSENT: motor sensory deficit Psychiatric exam: PRESENT: appropriate affect, normal mood. ABSENT: homicidal ideation, suicidal ideation Skin exam: PRESENT: dry, intact, warm. ABSENT: cyanosis, rash Results Laboratory Results: 06/27/17 06:07 06/27/17 06:07 06/27/17 06/27/17 06:07 06:07 WBC 11.1 H RBC 2.96 L Hgb 9.6 L Hct 28.5 L MCV 96 MCH 32.4 MCHC 33.6 RDW 15.8 H Plt Count 272 Seg Neutrophils % 83.1 H Lymphocytes % 10.7 L Monocytes % 5.9 Eosinophils % 0.0 Basophils % 0.3 Absolute Neutrophils 9.2 H Absolute Lymphocytes 1.2 Absolute Monocytes 0.7 Absolute Eosinophils 0.0 Absolute Basophils 0.0 Sodium 145.1 H Potassium 3.3 L Chloride 113 H Carbon Dioxide 20 L Anion Gap 12 BUN 12 Creatinine 0.75 Est GFR ( Amer) > 60 Est GFR (Non-Af Amer) > 60 Glucose 86 Calcium 7.2 L 06/25/17 06/25/17 06:18 06:18 Creatine Kinase 42 NT-Pro-B Natriuret Pep 816 H Impressions: Chest X-Ray 06/24/17 09:02 IMPRESSION: EXTENSIVE INFILTRATE IN THE RIGHT LUNG LIKELY DUE TO PNEUMONIA. Assessment & Plan - Diagnosis (1) Congestive heart failure Qualifiers: Congestive heart failure type: diastolic Congestive heart failure chronicity: acute on chronic Qualified Code(s): I50.33 - Acute on chronic diastolic (congestive) heart failure Is this a current diagnosis for this admission?: Yes Plan: Careful IV hydration in the setting of acute sepsis in the setting of chronic acute on chronic diastolic dysfunction continue to monitor and evaluate need for Lasix. Patient did get 20 mg of IV Lasix today also had replace her potassium (2) Right middle lobe pneumonia Qualifiers: Pneumonia type: due to unspecified organism Qualified Code(s): J18.1 - Lobar pneumonia, unspecified organism Is this a current diagnosis for this admission?: Yes Plan: Patient was started on vancomycin and Zosyn. We will continue those for pharmacy to dose due to her acute on chronic renal failure. Blood cultures were ordered and obtained. Continue to monitor and follow. Patient has had multiple rounds of antibiotics. Would consider palliative care consult in the near future for goals of care discussion. On admission patient had a WBC of 16.2 sodium was 145.5 chloride is 114 lactic acid was 3.2 but it came down to 2.3 we will repeat that in the morning will send culture for urine not done in the ER. Patient continued looks much better today much improved than yesterday. Daughter states she knows she is feeling better because she is becoming irritable again. (3) MELANY (acute kidney injury) Is this a current diagnosis for this admission?: Yes Plan: Gentle IV hydration will give D5 half-normal saline due to elevated sodium level repeat chemistry in the a.m. (4) Dementia Qualifiers: Dementia type: vascular dementia Is this a current diagnosis for this admission?: Yes Plan: Patient's daughter interprets for her she speaks very good Cymro and seems to be very knowledgeable about her medical condition. She does have healthcare power of family law attorney and states she will be with her most all the time (5) Sepsis Qualifiers: Sepsis type: sepsis due to unspecified organism Qualified Code(s): A41.9 - Sepsis, unspecified organism Plan: Continue IV antibiotics 2. Monitor labs and cultures. Repeat lactic acid level in a.m. (6) Hypothyroidism Qualifiers: Hypothyroidism type: acquired Qualified Code(s): E03.9 - Hypothyroidism, unspecified Is this a current diagnosis for this admission?: Yes (7) Urinary tract infection Is this a current diagnosis for this admission?: Yes Plan: Careful IV hydration, and continue IV antibiotics patient had gram-negative rods but appears to be colonized (8) Hypokalemia Plan: replace K= today with K runners and oral. recheck in am
[2017-06-27] MEDS: BIMATOPROST 0.01% OPH SOLN 2.5 ML/BOTTLE OU SCH (17:32)
[2017-06-27] MEDS: CALCIUM CARBONATE 250 MG/VITAMIN D3 125 UNIT TABLET PO SCH (17:32)
[2017-06-27] MEDS: DONEPEZIL HCL 5 MG TABLET PO SCH (22:34)
[2017-06-27] MEDS: FENOFIBRATE NANOCRYSTALLIZED 145 MG TABLET PO SCH (22:34)
[2017-06-27] MEDS: ATORVASTATIN CALCIUM 10 MG TABLET PO SCH (22:34)
[2017-06-28] MEDS: PIPERACILLIN SODIUM/TAZOBACTAM 2.25 GM in NORMAL SALINE 50 ML IV SCH ×4 (01:09→18:13)
[2017-06-28] MEDS: LANSOPRAZOLE 30 MG TAB.RAP.DR PO SCH ×2 (06:20→18:13)
[2017-06-28] MEDS: HEPARIN SOD (PORCINE) 5,000 UNIT/ML 1 ML SYRINGE SUBCUT SCH ×3 (06:20→22:20)
[2017-06-28] MEDS: PROPAFENONE HCL 150 MG TABLET PO SCH ×3 (06:20→22:20)
[2017-06-28 06:21] LABS: ANION GAP 10 (5-19); BLOOD UREA NITROGEN 15 mg/dL (7-20); CALCIUM 7.5 mg/dL (8.4-10.2); CARBON DIOXIDE 21 mmol/L (22-30); CHLORIDE 114 mmol/L (98-107); CREATININE RESULT 0.72 mg/dL (0.52-1.25); GLUCOSE 82 mg/dL (75-110); SODIUM 145.4 mmol/L (137-145)
--- NOTE | 2017-06-28 09:26 | RADIOLOGY REPORT (SQ) ---
EXAM DESCRIPTION: CHEST PA/LAT COMPLETED DATE/TIME: 06/28/2017 9:05 am REASON FOR STUDY: re-eval pna COMPARISON: CT chest 09/14/2014 Chest films 12/03/2015, 01/29/2017, 02/04/2017, 04/09/2017 EXAM PARAMETERS: NUMBER OF VIEWS: two views TECHNIQUE: Digital Frontal and Lateral radiographic views of the chest acquired. RADIATION DOSE: NA LIMITATIONS: none FINDINGS: LUNGS AND PLEURA: No opacities, masses or pneumothorax. No pleural effusion. MEDIASTINUM AND HILAR STRUCTURES: No masses or contour abnormalities. HEART AND VASCULAR STRUCTURES: Stable marked cardiomegaly BONES: No acute findings. HARDWARE: None in the chest. OTHER: No other significant finding. IMPRESSION: No acute infiltrates or effusions Stable cardiomegaly TECHNICAL DOCUMENTATION: JOB ID: [id number]- All Rights Reserved
[2017-06-28] MEDS: CALCIUM CARBONATE 250 MG/VITAMIN D3 125 UNIT TABLET PO SCH ×2 (09:38→18:13)
[2017-06-28] MEDS: FOLIC ACID 1 MG TABLET PO SCH (09:38)
[2017-06-28] MEDS: LEVOTHYROXINE SODIUM 0.1 MG TABLET PO SCH (09:38)
[2017-06-28] MEDS: GUAIFENESIN 600 MG TABLET.SA PO SCH ×2 (09:39→22:20)
[2017-06-28] MEDS: HYDROXYCHLOROQUINE SULFATE 200 MG TABLET PO SCH (09:39)
[2017-06-28] MEDS: SERTRALINE HCL 50 MG TABLET PO SCH (09:40)
[2017-06-28] MEDS: CYANOCOBALAMIN (VITAMIN B-12) 1,000 MCG TABLET PO SCH (09:40)
[2017-06-28] MEDS: PREDNISONE 5 MG TABLET PO SCH ×2 (09:40→18:13)
--- NOTE | 2017-06-28 14:17 | PDOC PROGRESS REPORT ---
Subjective Progress Note for:: 06/28/17 Subjective:: This is a 82-year-old female admitted with pneumonia and appears to have another UTI but she probably is colonized. She was hypotensive and hypoxic denies fever tensive which is improved blood pressure 114/60. She responded well to IV antibiotics. Cultures were positive for gram-negative rods colonized in her urine. Has some rales and SOB will responded well to Lasix. Patient looks much better today. States she is almost ready to go home. Continues to have O2 via nasal cannula. Will attempt weaning that today in hopes of discharge next day or so. Physical Exam Vital Signs: Temp Pulse Resp BP Pulse Ox 98.1 F 67 18 144/65 H 100 06/28/17 07:39 06/28/17 07:39 06/28/17 07:39 06/28/17 07:39 06/28/17 07:39 Intake & Output 06/27/17 06/28/17 06/29/17 07:59 06:59 06:59 Intake Total Balance Weight General appearance: PRESENT: no acute distress, well-developed, well-nourished Head exam: PRESENT: atraumatic, normocephalic Eye exam: PRESENT: conjunctiva pink, EOMI, PERRLA. ABSENT: scleral icterus Ear exam: PRESENT: normal external ear exam Mouth exam: PRESENT: moist, tongue midline Neck exam: ABSENT: carotid bruit, JVD, lymphadenopathy, thyromegaly Respiratory exam: PRESENT: clear to auscultation ana maria. ABSENT: rales, rhonchi, wheezes Cardiovascular exam: PRESENT: RRR. ABSENT: diastolic murmur, rubs, systolic murmur Pulses: PRESENT: normal dorsalis pedis pul Vascular exam: PRESENT: normal capillary refill GI/Abdominal exam: PRESENT: normal bowel sounds, soft. ABSENT: distended, guarding, mass, organolmegaly, rebound, tenderness Rectal exam: PRESENT: deferred Extremities exam: PRESENT: full ROM. ABSENT: calf tenderness, clubbing, pedal edema Neurological exam: PRESENT: alert, awake, oriented to person, oriented to place , oriented to time, oriented to situation, CN II-XII grossly intact. ABSENT: motor sensory deficit Psychiatric exam: PRESENT: appropriate affect, normal mood. ABSENT: homicidal ideation, suicidal ideation Skin exam: PRESENT: dry, intact, warm. ABSENT: cyanosis, rash Results Laboratory Results: 06/27/17 06:07 06/28/17 05:03 06/28/17 05:03 Sodium 145.4 H Potassium 4.0 Chloride 114 H Carbon Dioxide 21 L Anion Gap 10 BUN 15 Creatinine 0.72 Est GFR ( Amer) > 60 Est GFR (Non-Af Amer) > 60 Glucose 82 Calcium 7.5 L 06/25/17 06/25/17 06:18 06:18 Creatine Kinase 42 NT-Pro-B Natriuret Pep 816 H Impressions: Chest X-Ray 06/28/17 00:00 IMPRESSION: No acute infiltrates or effusions Stable cardiomegaly Assessment & Plan - Diagnosis (1) MELANY (acute kidney injury) Is this a current diagnosis for this admission?: Yes Plan: Patient was given general IV hydration. Currently hep-locked since she is taking good p.o. and to avoid fluid overload with the need of getting Lasix (2) Sepsis Qualifiers: Sepsis type: sepsis due to unspecified organism Qualified Code(s): A41.9 - Sepsis, unspecified organism Plan: Continue IV antibiotics 2. Monitor labs and cultures. Repeat lactic acid level in a.m. (3) Urinary tract infection Qualifiers: Urinary tract infection type: site unspecified Hematuria presence: without hematuria Qualified Code(s): N39.0 - Urinary tract infection, site not specified Is this a current diagnosis for this admission?: Yes Plan: Careful IV hydration, and continue IV antibiotics patient had gram-negative rods but appears to be colonized (4) Right middle lobe pneumonia Qualifiers: Pneumonia type: due to unspecified organism Qualified Code(s): J18.1 - Lobar pneumonia, unspecified organism Is this a current diagnosis for this admission?: Yes Plan: Patient was started on vancomycin and Zosyn. We will continue those for pharmacy to dose due to her acute on chronic renal failure. Blood cultures were ordered and obtained. Continue to monitor and follow. Patient has had multiple rounds of antibiotics. Would consider palliative care consult in the near future for goals of care discussion. On admission patient had a WBC of 16.2 sodium was 145.5 chloride is 114 lactic acid was 3.2 but it came down to 2.3 we will repeat that in the morning will send culture for urine not done in the ER. Patient continued looks much better today much improved than yesterday. Daughter states she knows she is feeling better because she is becoming irritable again. Patient has much improved color today she is sitting up in bed wearing makeup I will discontinue her vancomycin since she has no growth on her blood cultures. Wean O2 off. Ambulate patient in the holliday to see if she her O2 sats dropped if they do then I would recommend patient go home on O2. Plan discharge home with physical therapy and home health. (5) Congestive heart failure Qualifiers: Congestive heart failure type: diastolic Congestive heart failure chronicity: acute on chronic Qualified Code(s): I50.33 - Acute on chronic diastolic (congestive) heart failure Is this a current diagnosis for this admission?: Yes Plan: Careful IV hydration in the setting of acute sepsis in the setting of chronic acute on chronic diastolic dysfunction continue to monitor and evaluate need for Lasix. Patient did get 20 mg of IV Lasix 06/27/17 also had replace her potassium. This patient may benefit from getting Lasix 20 mg orally every other day instead of daily I would like to get an echocardiogram prior to her going home to evaluate her cardiac status. Her last echo was 2 years ago (6) Dementia Qualifiers: Dementia type: vascular dementia Is this a current diagnosis for this admission?: Yes (7) Hypothyroidism Qualifiers: Hypothyroidism type: acquired Qualified Code(s): E03.9 - Hypothyroidism, unspecified Is this a current diagnosis for this admission?: Yes
[2017-06-28] MEDS ORDERED: BIMATOPROST 0.01% OPH SOLN 2.5 ML/BOTTLE ONE (18:16)
[2017-06-28] MEDS: BIMATOPROST 0.01% OPH SOLN 2.5 ML/BOTTLE OU SCH (18:22)
[2017-06-28] MEDS: ATORVASTATIN CALCIUM 10 MG TABLET PO SCH (22:20)
[2017-06-28] MEDS: FENOFIBRATE NANOCRYSTALLIZED 145 MG TABLET PO SCH (22:20)
[2017-06-28] MEDS: DONEPEZIL HCL 5 MG TABLET PO SCH (22:20)
[2017-06-29] MEDS: PIPERACILLIN SODIUM/TAZOBACTAM 2.25 GM in NORMAL SALINE 50 ML IV SCH ×3 (00:24→11:33)
[2017-06-29] MEDS: PROPAFENONE HCL 150 MG TABLET PO SCH ×2 (06:10→15:24)
[2017-06-29] MEDS: HEPARIN SOD (PORCINE) 5,000 UNIT/ML 1 ML SYRINGE SUBCUT SCH ×2 (06:10→15:00)
[2017-06-29] MEDS: LANSOPRAZOLE 30 MG TAB.RAP.DR PO SCH (06:10)
[2017-06-29 08:21] LABS: HEMATOCRIT 30.9 % (36.0-47.0); HEMOGLOBIN 10.1 g/dL (12.0-15.5); HGB HCT DIFFERENCE -0.6; MEAN CORPUSCULAR HGB CONC 32.7 g/dL (32.0-36.0); MEAN CORPUSCULAR VOLUME 98 fl (80-97); RED BLOOD COUNT 3.16 10^6/uL (3.72-5.28); RED CELL DISTRIBUTION WIDTH 15.9 % (11.5-14.0)
[2017-06-29 08:41] LABS: ANION GAP 9 (5-19); BLOOD UREA NITROGEN 17 mg/dL (7-20); CALCIUM 8.3 mg/dL (8.4-10.2); CARBON DIOXIDE 22 mmol/L (22-30); CHLORIDE 114 mmol/L (98-107); GLUCOSE 97 mg/dL (75-110); POTASSIUM 3.7 mmol/L (3.6-5.0); SODIUM 144.7 mmol/L (137-145)
[2017-06-29] MEDS ORDERED: HYDROXYCHLOROQUINE SULFATE 200 MG TABLET PO SCH (10:00)
[2017-06-29] MEDS ORDERED: ERGOCALCIFEROL (VITAMIN D2) 50000 UNIT (1.25 MG) CAPSULE PO SCH (10:00)
[2017-06-29] MEDS: FOLIC ACID 1 MG TABLET PO SCH (10:13)
[2017-06-29] MEDS: CYANOCOBALAMIN (VITAMIN B-12) 1,000 MCG TABLET PO SCH (10:14)
[2017-06-29] MEDS: LEVOTHYROXINE SODIUM 0.1 MG TABLET PO SCH (10:14)
[2017-06-29] MEDS: CALCIUM CARBONATE 250 MG/VITAMIN D3 125 UNIT TABLET PO SCH (10:15)
[2017-06-29] MEDS: SERTRALINE HCL 50 MG TABLET PO SCH (10:16)
[2017-06-29] MEDS: GUAIFENESIN 600 MG TABLET.SA PO SCH (10:16)
[2017-06-29] MEDS: PREDNISONE 5 MG TABLET PO SCH (10:16)
[2017-06-29] MEDS: OXYCODONE HCL IR 5 MG TABLET PO PRN (10:17)
[2017-06-29 16:03] VITALS: BP 152/51
--- NOTE | 2017-06-29 16:13 | PDOC DISCHARGE SUMMARY ---
General - Admit/Disc Date/PCP Admission Date/Primary Care Provider: 06/24/17 11:43 GINI BROCK MD Discharge Date: 06/29/17 - Discharge Diagnosis (1) Sepsis Is this a current diagnosis for this admission?: Yes (2) Right middle lobe pneumonia Is this a current diagnosis for this admission?: Yes Summary: Patient was treated with steroids, bronchodilators and antibiotics with good results. (3) Congestive heart failure Is this a current diagnosis for this admission?: Yes Summary: Patient was given Lasix p.o. she has a prescription for it at home however the family has not been given it to her so I recommend to her daughter to give it to her when her breathing gets more unlabored and or for pedal edema which is a late finding (4) Dementia Is this a current diagnosis for this admission?: Yes (5) Hypothyroidism Is this a current diagnosis for this admission?: Yes (6) Hypokalemia Summary: Normal potassium at time of discharge. (7) Urinary tract infection Is this a current diagnosis for this admission?: Yes - Additional Information Discharge Diet: Cardiac, Diabetic Discharge Activity: Activity As Tolerated, Balance Activity w/Rest, Slowly Increase Activity, Weigh Daily Home Medications: Alprazolam [Xanax 0.25 mg Tablet] 0.25 mg PO HSP PRN 06/24/17 Bimatoprost [Lumigan 0.01% Oph Soln 2.5 ml/Bottle] 1 drop OU QPM 06/24/17 Cyanocobalamin (Vitamin B-12) [Vitamin B-12 SR 2000 mcg Tablet] 2,000 mcg PO DAILY 06/24/17 Dexlansoprazole [Dexilant 30 mg Capsule] 30 mg PO DAILY 06/24/17 Donepezil HCl [Aricept 5 mg Tablet] 5 mg PO QHS 06/24/17 Ergocalciferol (Vitamin D2) [Drisdol 50,000 unit (1.25MG) Capsule] 50,000 unit PO MOWE@1000 06/24/17 Ferrous Sulfate [Feosol 325 mg Tablet] 325 mg PO TID 06/24/17 Folic Acid [Folvite 1 mg Tablet] 1 mg PO DAILY 06/24/17 Hydroxychloroquine Sulfate [Plaquenil 200 mg Tablet] 100 mg PO SUTUTHSA@1000 09/09 Hydroxychloroquine Sulfate [Plaquenil 200 mg Tablet] 200 mg PO MOWEFR@1000,2200 PRN 06/24/17 Levothyroxine Sodium [Synthroid] 200 mcg PO DAILY 06/24/17 Metformin HCl [Glucophage 500 mg Tablet] 500 mg PO BIDBS 06/24/17 Oxycodone HCl [Oxy-Ir 5 mg Tablet] 5 mg PO Q6HP PRN 06/24/17 Prednisone [Deltasone 5 mg Tablet] 5 mg PO BID 06/24/17 Propafenone HCl 300 mg PO Q8 06/24/17 Acetaminophen [Tylenol 325 mg Tablet] 650 mg PO Q4HP PRN tablet 06/29/17 Albuterol Sulfate [Proair HFA Inhalation Aerosol 8.5 gm MDI] 2 puff IH Q4HP PRN 30 Days #1 hfa.[email or web address] 06/29/17 Amoxicillin/Potassium Clav [Amox-Clav 500-125 mg Tablet] 1 each PO BID 5 Days # 10 tablet 06/29/17 Calcium Carbonate/Vitamin D3 [Os-Zafar 250 mg with Vitamin D 125 Units] 2 tab PO BID tablet 06/29/17 Fenofibrate 160 mg PO QHS 30 Days #30 tablet 06/29/17 Guaifenesin [Mucinex Sr 600 mg Tablet.sa] 1,200 mg PO Q12 30 Days #60 tablet.sa 06/29/17 Lansoprazole [Prevacid 30 mg Odt Tablet] 30 mg PO BID@0600,1700 30 Days #60 tab. 06/29/17 Oxycodone HCl [Oxy-Ir 5 mg Tablet] 5 mg PO Q6HP PRN tablet 06/29/17 Prednisone [Deltasone 5 mg Tablet] 10 mg PO BID tablet 06/29/17 Propafenone HCl [Rythmol 150 mg Tablet] 300 mg PO Q8 30 Days #0 tablet 06/29/17 Sertraline HCl [Zoloft 50 mg Tablet] 50 mg PO DAILY #30 tablet 06/29/17 History of Present Illness History of Present Illness: JOHANNA NOVAK is a 82 year old female a patient of Dr. GINI BROCK MD this is a 82-year-old [place] female past medical history includes A. fib, chronic UTIs suspect multidrug resistance, frequent pneumonias, chronic bronchitis, per patient's daughter she has had multiple bouts of sepsis and requiring ICU aggressive therapy. Patient was hypotensive and hypoxic for EMS and reported by family. She has not had a fever. She came in with hypotension blood pressure was 80/50s. She has a history of high blood pressure however she has not been on any blood pressure medication for a while due to hypotension. Patient has some trouble speaking Nepali. Daughter states she can understand better than she can speak but she has been in [place] 60 years. She also has a history of hypothyroidism, rheumatoid arthritis was on room air, congestive heart failure with normal EF abnormal troponins in the past due to sepsis. Physical Exam Vital Signs: Temp Pulse Resp BP Pulse Ox 98.2 F 58 L 16 114/51 L 100 06/29/17 12:11 06/29/17 12:11 06/29/17 12:11 06/29/17 12:11 06/29/17 12:11 Intake & Output 06/28/17 06/29/17 06/30/17 06:59 06:59 06:59 Intake Total 1545 Balance 1545 Weight 68.8 kg General appearance: PRESENT: no acute distress, well-developed, well-nourished Head exam: PRESENT: atraumatic, normocephalic Eye exam: PRESENT: conjunctiva pink, EOMI, PERRLA. ABSENT: scleral icterus Ear exam: PRESENT: normal external ear exam Mouth exam: PRESENT: moist, tongue midline Neck exam: ABSENT: carotid bruit, JVD, lymphadenopathy, thyromegaly Respiratory exam: PRESENT: clear to auscultation ana maria. ABSENT: rales, rhonchi, wheezes Cardiovascular exam: PRESENT: RRR. ABSENT: diastolic murmur, rubs, systolic murmur Pulses: PRESENT: normal dorsalis pedis pul Vascular exam: PRESENT: normal capillary refill GI/Abdominal exam: PRESENT: normal bowel sounds, soft. ABSENT: distended, guarding, mass, organolmegaly, rebound, tenderness Rectal exam: PRESENT: deferred Extremities exam: PRESENT: full ROM. ABSENT: calf tenderness, clubbing, pedal edema Neurological exam: PRESENT: alert, awake, oriented to person, oriented to place , oriented to time, oriented to situation, CN II-XII grossly intact. ABSENT: motor sensory deficit Psychiatric exam: PRESENT: appropriate affect, normal mood. ABSENT: homicidal ideation, suicidal ideation Skin exam: PRESENT: dry, intact, warm. ABSENT: cyanosis, rash Results Laboratory Results: 06/29/17 07:56 06/29/17 07:56 06/29/17 06/29/17 07:56 07:56 WBC 14.0 H RBC 3.16 L Hgb 10.1 L Hct 30.9 L MCV 98 H MCH 32.0 MCHC 32.7 RDW 15.9 H Plt Count 305 Sodium 144.7 Potassium 3.7 Chloride 114 H Carbon Dioxide 22 Anion Gap 9 BUN 17 Creatinine 0.80 Est GFR ( Amer) > 60 Est GFR (Non-Af Amer) > 60 Glucose 97 Calcium 8.3 L 06/24/17 12:35 Blood Blood Culture - Final NO GROWTH IN 5 DAYS 06/25/17 06/25/17 06:18 06:18 Creatine Kinase 42 NT-Pro-B Natriuret Pep 816 H Impressions: Chest X-Ray 06/28/17 00:00 IMPRESSION: No acute infiltrates or effusions Stable cardiomegaly Plan Discharge Plan: We were unable to wean patient off her O2. She desats down to 84 when ambulating in the holliday. She has pretty significant dyspnea with any, exertion. I feel it is best that this patient go home on home O2 2 L and reevaluate. Also given her bedside commode and hospital bed for her safety and due to her dyspnea having the sleep on 4 pillows at night and her daughter is constantly having to reposition her. This patient cannot lay flat due to her significant COPD and CHF. Patient was given prescription for Augmentin for another 5 days. Time Spent: Less than 30 Minutes
== END 2017-06-29 16:45 | disposition home health service (06) | DRG 871 ==
LOC: ER 08:57 → EH 10:41 → UNDOADMIN 10:41 → 3W 11:43 → EH 12:19 → 3W 12:19
PROVIDERS: ADMIT Hospitalist; ATTEND Hospitalist
PROC: 3E0F73Z Introduction of Anti-inflammatory into Respiratory Tract, Via Natural or Artificial Opening (ICD-10-PCS; principal; 2017-06-24)
PROC: 3E0234Z Introduction of Serum, Toxoid and Vaccine into Muscle, Percutaneous Approach (ICD-10-PCS; 2017-06-29)
DX: A41.9 Sepsis, unspecified organism (principal); J18.9 Pneumonia, unspecified organism; I50.43 Acute on chronic combined systolic (congestive) and diastolic (congestive) heart failure; I50.33 Acute on chronic diastolic (congestive) heart failure; N30.00 Acute cystitis without hematuria; I13.0 Hypertensive heart and chronic kidney disease with heart failure and stage 1 through stage 4 chronic kidney disease, or unspecified chronic kidney disease; N17.9 Acute kidney failure, unspecified; E11.22 Type 2 diabetes mellitus with diabetic chronic kidney disease; D64.9 Anemia, unspecified; F41.1 Generalized anxiety disorder; J42 Unspecified chronic bronchitis; E87.6 Hypokalemia; I48.91 Unspecified atrial fibrillation; M06.9 Rheumatoid arthritis, unspecified; F01.50 Vascular dementia, unspecified severity, without behavioral disturbance, psychotic disturbance, mood disturbance, and anxiety; E03.9 Hypothyroidism, unspecified; I25.10 Atherosclerotic heart disease of native coronary artery without angina pectoris; E78.5 Hyperlipidemia, unspecified; N18.9 Chronic kidney disease, unspecified; Z88.3 Allergy status to other anti-infective agents; Z88.8 Allergy status to other drugs, medicaments and biological substances; Z79.899 Other long term (current) drug therapy; Z87.440 Personal history of urinary (tract) infections; Z79.52 Long term (current) use of systemic steroids; Z79.84 Long term (current) use of oral hypoglycemic drugs; Z99.81 Dependence on supplemental oxygen; Z23 Encounter for immunization
CPT/HCPCS: 36415; 71010; 71020; 80048; 81001; 82550; 82962; 83036; 83605; 83880; 84484; 85025; 85027; 87040; 87086; 87088; 87186; 90686; 93005; 93010; 96374; 96375; 99291; G8978-GP; G8979-GP; J1644; J1940; J2543; J3370; J3480; J3490; J7050; J7060; J7512